=== PATIENT | male | born 1950 | race Caucasian/White ===

== ENCOUNTER → 2017-07-27 | Outpatient (CLI) | payer OTHER ==
[~2017-07-27] MED LIST: ASPI325T45; ATOR-24 PO; MULT-506 PO; OMEG10007 PO
[2017-07-27 12:15] LABS: BASO % 0.3 %; BASO ABS # 0.02 K/uL (0-0.2); COMPLETE YES; EOS % 1.5 %; HEMATOCRIT 46.2 % (42-52); IG% 0.2 %; LYMPH % 38.8 %; LYMPH ABS # 2.28 K/uL (1.2-3.4); MEAN CELL VOLUME 90.8 fL (80-100); MEAN CORPUSCULAR HEMOGLOBIN 31.2 pg (25-34); MEAN CORPUSCULAR HGB CONC 34.4 g/dl (32-36); MEAN PLATELET VOLUME 10.5 fL (7.4-10.4); MONO % 8.5 %; NEUT % 50.7 %; PLATELET COUNT 175 K/uL (130-400); RED BLOOD COUNT 5.09 M/uL (4.7-6.1); WHITE BLOOD COUNT 5.88 K/uL (4.8-10.8)
[2017-07-27 12:45] LABS: ALT/SGPT 46 U/L (12-78); AST/SGOT 20 U/L (15-37); BLOOD UREA NITROGEN 20 mg/dl (7-18); CALCIUM 8.4 mg/dl (8.5-10.1); CARBON DIOXIDE 25 mmol/L (21-32); CHLORIDE 107 mmol/L (98-107); CHOLESTEROL 153 mg/dl (0-200); CREATININE 1.16 mg/dl (0.60-1.40); GLUCOSE 110 mg/dl (70-99); POTASSIUM 4.2 mmol/L (3.5-5.1); SODIUM 140 mmol/L (136-145)
[2017-07-27 12:50] LABS: ALKALINE PHOSPHATASE 81 U/L (45-117); CHOLESTEROL/HDL RATIO 2.8; HDL CHOLESTEROL 55 mg/dl; LDL CHOLESTEROL CALCULATED 69 mg/dl; TRIGLYCERIDES 143 mg/dl (0-150); VERY LOW DENSITY LIPOPROT CALC 29 mg/dl
== END | disposition home or self-care (01) ==
LOC: C.LABBFT 07:35
PROVIDERS: ATTEND Physician Assistant Medical
DX: Z12.5 Encounter for screening for malignant neoplasm of prostate (principal); E78.5 Hyperlipidemia, unspecified; R53.83 Other fatigue; I10 Essential (primary) hypertension

== ENCOUNTER → 2017-07-29 | Outpatient (CLI) | payer OTHER ==
[2017-07-29 12:26] LABS: ESTIMATED AVERAGE GLUCOSE 108 mg/dl; HA1C FLAG Normal (Normal)
[2017-07-29 12:51] LABS: LYME DISEASE AB IGG NEG (NEG); LYME DISEASE AB IGM NEG (NEG)
== END | disposition home or self-care (01) ==
LOC: C.LABBFT 09:24
PROVIDERS: ATTEND Physician Assistant Medical
DX: R73.01 Impaired fasting glucose (principal); T14.8XXA Other injury of unspecified body region, initial encounter; W57.XXXA Bitten or stung by nonvenomous insect and other nonvenomous arthropods, initial encounter

== ENCOUNTER 2017-09-27 08:28 | Inpatient (IN) | payer OTHER ==
[2017-08-24 11:44] VITALS: BMI 35.0
--- NOTE | 2017-08-24 12:14 | PAT Medication Instructions ---
Service Date Aug 24, 2017. Current Home Medication List Aspirin (Aspirin), QAM Atorvastatin (Lipitor), 40 MG PO QAM Fish Oil (Imperial-3), 2 TAB PO QAM Lisinopril (Zestril), 40 MG PO QAM Multivitamin (Multivitamin), 1 TAB PO QAM Naproxen (Naprosyn), 500 MG PO PRN Ranitidine Hcl (Zantac), 150 MG PO PRN Medication Instructions For Your Scheduled Surgery - Check with surgeon for instructions: Naproxen (Naprosyn), 500 MG PO PRN Aspirin (Aspirin), 325mg QAM - Hold the following medications 2 weeks prior to surgery: Fish Oil (Imperial-3), 2 TAB PO QAM - Hold the following medications the morning of surgery: Lisinopril (Zestril), 40 MG PO QAM Multivitamin (Multivitamin), 1 TAB PO QAM - Take the following medications the morning of surgery with a sip of water: Atorvastatin (Lipitor), 40 MG PO QAM Ranitidine Hcl (Zantac), 150 MG PO PRN (if needed) - Take the following medications as scheduled the night before surgery: Ranitidine Hcl (Zantac), 150 MG PO PRN (if needed) If you have any questions please call us at [phone] or [phone] or [phone]
[2017-08-24 13:03] LABS: BASO % 0.4 %; BASO ABS # 0.02 K/uL (0-0.2); EOS % 0.8 %; EOS ABS # 0.04 K/uL (0-0.5); HEMATOCRIT 44.8 % (42-52); HEMOGLOBIN 15.4 g/dL (14.0-18.0); IG# 0.01 K/uL (0.00-0.02); LYMPH % 37.7 %; LYMPH ABS # 1.98 K/uL (1.2-3.4); MEAN CELL VOLUME 90.9 fL (80-100); MEAN CORPUSCULAR HEMOGLOBIN 31.2 pg (25-34); MEAN CORPUSCULAR HGB CONC 34.4 g/dl (32-36); MEAN PLATELET VOLUME 9.7 fL (7.4-10.4); MONO ABS # 0.37 K/uL (0.11-0.59); NEUT % 53.9 %; NEUT ABS # 2.83 K/uL (1.4-6.5); PLATELET COUNT 173 K/uL (130-400); RED CELL DISTRIBUTION WIDTH CV 13.5 % (11.5-14.5); RED CELL DISTRIBUTION WIDTH SD 44.6 fL (36.4-46.3); WHITE BLOOD COUNT 5.25 K/uL (4.8-10.8)
--- NOTE | 2017-08-24 13:09 | DIAGNOSTIC IMAGING REPORT ---
CHEST 2 VIEWS ROUTINE CLINICAL HISTORY: Preoperative evaluation. COMPARISON STUDY: No previous studies for comparison. FINDINGS: Lung volumes are normal. Incidental note is made of an azygos fissure. There is no consolidation to suggest pneumonia. Cardiomediastinal silhouette is normal. Pulmonary vascularity is normal. IMPRESSION: No acute cardiopulmonary findings. Electronically signed by: Josue Hagan M.D. 08/24/2017 1:08 PM Dictated Date/Time: 08/24/2017 1:07 PM
[2017-08-24 13:12] LABS: ALBUMIN 3.7 gm/dl (3.4-5.0); CALCIUM 8.9 mg/dl (8.5-10.1); CREATININE 0.95 mg/dl (0.60-1.40); POTASSIUM 4.4 mmol/L (3.5-5.1); PTT PATIENT 24.6 SECONDS (21.0-31.0)
--- NOTE | 2017-09-21 14:41 | History and Physical ---
History & Physical Date of Service Sep 21, 2017. History & Physical PROCEDURE: Right knee replacement. HISTORY OF PRESENT ILLNESS: Parth is a pleasant 67-year-old male who presents today for preop evaluation prior to right knee replacement. He states that he has been experiencing pain in that knee for several years now, which has gradually worsened. It has gotten to the point that it is affecting his daily activities including walking, standing, going up and down steps. He takes oral anti-inflammatories daily including Aleve without relief and also wears a brace on the knee, but has not shown any significant improvement. He also has had a previous knee arthroscopy without relief. At this point in time, further care was discussed with the patient and he has failed conservative measures and would like to proceed with a right knee replacement. he had his left knee replaced a couple years ago and doing well. PAST MEDICAL HISTORY: 1. Hypertension. 2. High cholesterol. 3. Sleep apnea and use of the CPAP machine at home. 4. Acid reflux. 5. Obesity. ALLERGIES: No known drug allergies. CURRENT MEDICATIONS: 1. Lipitor daily. 2. Multivitamin daily. 3. Aspirin 81 mg daily. 4. Vitamin E. PAST SURGICAL HISTORY: 1. Knee arthroscopy 2002. 2. Nasal surgery in 1983. 3. left TKA FAMILY HISTORY: Noncontributory. 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 Denies any previous smoking or tobacco use. No alcohol consumption. REVIEW OF SYSTEMS: Otherwise negative. Please see HPI for pertinent positives. PHYSICAL EXAMINATION: GENERAL: Angy 67-year-old male appearing stated age, in no acute distress, alert and oriented x3. He is 6 foot tall, weighs 265 pounds. HEENT: Normocephalic, atraumatic. CARDIAC: Regular rate and rhythm. No murmurs or gallops were appreciated. Resting pulse 70 beats minute. LUNGS: Clear to auscultation without rales or wheeze bilaterally. ABDOMEN: Soft, nontender, obese. Bowel sounds present. EXTREMITIES: Right lower extremity is neurovascularly intact. Calf is soft and nontender. DP pulse +2. Good quad tone. Straight leg raise without lag. There is no erythema or warmth, mild effusion, positive crepitation with motion, range of motion is 0/5/115. He has diffuse tenderness to the knee, which is greatest over the medial compartment. IMAGING: Right knee shows diminished joint space in the medial compartment with [id number] changes including peripheral osteophytes and subchondral sclerosis noted. Also has degenerative changes of patellofemoral joint on lateral view with patellar spurring noted. IMPRESSION: 1. Right knee degenerative joint disease 2. Hypertension. 3. High cholesterol. 4. Gastroesophageal reflux disease. 5. Obesity. 6. Sleep apnea. PLAN: Further care discussed with Parth. At this point in time, after failing conservative measures and discussing further care, would like to proceed with a right knee replacement on 09/27/17. We will obtain medical clearance from Dr. Acosta. Place on aspirin 81 mg 1 tablet p.o. b.i.d. for 1 month postop. He would like to be discharged home with a home therapy.
[2017-09-27] VITALS (7 sets, daily range): BP systolic 120–147; BP diastolic 72–93; PULSE 79–104; TEMP 36.7–37.1; O2SAT 93–96; Ht 182.9 cm; Wt 116.7 kg
[~2017-09-27] VITALS: Ht 182.9 cm; Wt 116.7 kg
--- NOTE | 2017-09-27 07:15 | History & Physical Bridge Note ---
H&P Re-Evaluation Bridge Note: I have examined the patient, reviewed the History & Physical and in the interval since the performance of the History & Physical I have noted the following changes of clinical significance: No changes noted
[~2017-09-27 08:28] MED LIST changes: +ACETAMINOPHEN 500 MG TAB PO SCH; +BUPIVACAINE 0.25% 30 ML VIAL ONE; +BUPIVACAINE 0.5 % 5 MG/1 ML PF 10ML VIAL ONE; +CEFAZOLIN 3000MG IV PUSH 15 ML IV SCH; +CeleBREX 200 MG CAP PO SCH; +DEXAMETHASONE 4 MG TAB PO SCH; +FAMOTIDINE 20 MG TAB PO SCH; +FENTANYL CITRATE INJ 50 MCG/1 ML 2 ML VIAL ONE; +GABAPENTIN 300 MG CAP PO SCH; +LACTATED RINGER'S 1000ML 1,000 ML IV SCH; +LACTATED RINGER'S 1000ML 500 ML IV SCH; +LACTATED RINGER'S 1000ML IV SCH; +LISI40TA PO; +METOCLOPRAMIDE HCL 10 MG TAB PO SCH; +MIDAZOLAM HCL 1 MG/ML 2ML VIAL ONE; +NAPR1TAB48 PO; +RANI150T3 PO; +ROPIVACAINE 5MG/ML 30 ML 150 MG, BUPIVACAINE 0.5% MPF INJ 30 ML, EpINEphrine HCL INJ 0.... INFIL SCH
[2017-09-27] MEDS ORDERED: ONDANSETRON INJ 2 MG/ML 2 ML VIAL ONE ×2 (08:37→10:36)
[2017-09-27] MEDS ORDERED: PROPOFOL IV EMULSION 10 MG/ML 20 ML VIAL IV ONE (08:37)
[2017-09-27] MEDS ORDERED: LIDOCAINE HCL 2% 2 ML VIAL (20MG/ML) ONE (08:37)
[2017-09-27] MEDS ORDERED: ORTHO JOINT ANESTHETIC ONE (09:11)
[2017-09-27] MEDS ORDERED: BACITRACIN 50000 UNIT VIAL ONE (09:11)
[2017-09-27] MEDS ORDERED: POVIDONE-IODINE OP SOLN 30 ML BTL ONE (09:11)
[2017-09-27] MEDS: TRANEXAMIC ACID INJ 1,000 MG in SYRINGE 0 ML IV SCH ×2 (09:36→14:08)
[2017-09-27] MEDS ORDERED: HYDROmorphone INJ 0.5 MG/0.5 ML SYR IV PRN (10:30)
[2017-09-27] MEDS ORDERED: ONDANSETRON INJ 2 MG/ML 2 ML VIAL IV PRN ×2 (10:30→12:00)
[2017-09-27] MEDS ORDERED: ATROPINE SULFATE 0.1 MG/ML 5ML SYR IV PRN (10:30)
[2017-09-27] MEDS ORDERED: PHENYLEPHRINE 100MCG/ML 5ML SYR IV PRN (10:30)
[2017-09-27] MEDS ORDERED: EpHEDrine SULFATE INJ 50 MG/ML AMP IV PRN (10:30)
[2017-09-27] MEDS ORDERED: KETOROLAC TROMETHAMINE 15 MG/ML VIAL IV. PRN ×2 (10:30→12:00)
[2017-09-27] MEDS ORDERED: EpHEDrine SULFATE 50MG/5ML SYR ONE (10:36)
[2017-09-27] MEDS ORDERED: PHENYLEPHRINE 100MCG/ML 5ML SYR ONE (10:36)
--- NOTE | 2017-09-27 11:13 | [facility] Operative Report ---
Operative Report Operative Date Sep 27, 2017. Pre-Operative Diagnosis Right Knee Degenerative Joint Disease Post-Operative Diagnosis Right Knee Degenerative Joint Disease Procedure(s) Performed Right Total Knee Arthroplasty, Cemented utilizing Melendez & Nephew journey 2 patient matched total knee arthroplasty size 8 femur 7 tibia 13 Maria Ines [address] 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 Description of Procedure After proper prepping and draping of the Right lower extremity anterior midline incision was made over the region of the extensor extensor mechanism after meticulous hemostasis was obtained and maintained in subcutaneous tissues a medial parapatellar incision was made The patella was subluxed lateralward the medial lateral gutter were cleaned from any hypertrophic synovitis and scar tissue of the distal femoral block was placed and the distal femoral osteotomy cut was made subsequently the chamfers anterior and posterior osteotomy cuts were made utilizing the 4-in-1 block the tibia was subsequently subluxed anteriorward medial and ateral meniscal remnants were excised in their entirety remnants of the anterior and posterior cruciate ligaments were excised in their entirety excellent exposure of the proximal tibia was obtained the tibial osteotomy guide was placed on the proximal tibial osteotomy cut was made once again the knee was irrigated with copious amounts of sterile saline solution the patella was subsequently everted lateralward thickened scar tissue around the patella was removed the patella was subsequently cut utilizing a freehand technique and was drilled prepared for final preparation and placement of patella socially flexion-extension gaps were checked and the equal and symmetric trials were placed to the appropriate femoral and tibial trials with poly-spacer being placed for equal flexion and extension gaps and full range of motion including extension to 0 and flexion to 140 the trial components after having been taken to recovery range of motion was subsequently removed meticulous hemostasis was obtained and maintained subsequently a knee block injection of joint cocktail including ropivacaine 0.5% 150 mg. Bupivacaine 0.5 % epinephrine 1-200,030 mL's toradol 30 mg dexamethasone 4 mg ketamine 10 mg clonidine 100 micrograms normal saline solution 30 mg was infiltrated into the soft tissues of the posterior knee medial lateral gutters and periosteal synovium special attention was paid to protect neurovascular structures at all times subsequently trial components having been removed the knee was irrigated with sterile saline solution. debris was removed the proximal tibia was subsequently prepared and was made ready for the placement of the tibial component tibial component was also cemented and tamped into position the femoral component was subsequently placed and cemented in the position the patellar component was subsequently cemented in position because hemostasis once again obtained and maintained wound having been thoroughly irrigated with debridement and debridement lavage was performed as well as a medial parapatellar incision closed with #1 Vicryl in interrupted fashion subcutaneous was closed with #2 Vicryl skin was closed with skin clips. PA-C was necessary for prepping and drapping as well as wound closure of deep fascia Sub cutaneous tissue and skin and was necessary for the case. A sterile compressive dressing was placed patient was taken to recovery in stable condition of report dictated by Lucho I attest to the content of the Intraoperative Record and any orders documented therein. Any exceptions are noted below. I attest to the content of the Intraoperative Record and any orders documented therein. Any exceptions are noted below.
[2017-09-27] MEDS ORDERED: ZOLPIDEM TARTRATE 5 MG TAB PO PRN (12:00)
[2017-09-27] MEDS ORDERED: BISACODYL 10 MG SUPP PR PRN (12:00)
[2017-09-27] MEDS ORDERED: OXYCODONE HCL IR 5 MG TAB (IMMEDIATE RELEASE) PO PRN (12:00)
[2017-09-27] MEDS ORDERED: MAGNESIUM HYDROXIDE SUSP 30 ML UDC PO PRN (12:00)
[2017-09-27] MEDS ORDERED: MoRPHine SULFATE 2 MG/ML CARP IV PRN ×2 (12:00→13:45)
[2017-09-27] MEDS ORDERED: SOD PHOSPHATE/SOD BIPHOSPHATE ENEMA 132 ML BTL PR PRN (12:00)
[2017-09-27] MEDS ORDERED: TRAMADOL HCL 50 MG TAB PO PRN (12:00)
[2017-09-27] MEDS ORDERED: ALUMINUM/MAGNESIUM/SIMETH (MAALOX MAX) 30 ML UDC PO PRN (12:00)
--- NOTE | 2017-09-27 12:14 | Anesthesiology Progress Note ---
Anesthesia Post Op Note Date & Time Sep 27, 2017 at 12:14 Vital Signs Pain Intensity: 0 Vital Signs Past 12 Hours Date Time Temp Pulse Resp B/P (MAP) Pulse Ox O2 Delivery O2 Flow Rate FiO2 09/27/17 12:10 96 18 113/75 94 Nasal Cannula 2 09/27/17 12:00 98 18 123/77 94 Nasal Cannula 2 09/27/17 11:51 36.5 101 18 98/46 95 Nasal Cannula 2 09/27/17 09:00 36.8 79 18 147/93 94 Room Air Notes Mental Status: alert / awake / arousable, participated in evaluation Pt Amnestic to Procedure: Yes Nausea / Vomiting: adequately controlled Pain: adequately controlled Airway Patency, RR, SpO2: stable & adequate BP & HR: stable & adequate Hydration State: stable & adequate Anesthetic Complications: no major complications apparent
--- NOTE | 2017-09-27 12:29 | DIAGNOSTIC IMAGING REPORT ---
R KNEE 1 OR 2 VIEWS ROUTINE CLINICAL HISTORY: Right knee osteoarthritis. Arthroplasty. COMPARISON: None. FINDINGS: Alignment of the total right knee arthroplasty is anatomic. There is no fracture or unexpected radiopaque foreign body. Skin surgical drains are in place. IMPRESSION: Expected findings following total right knee arthroplasty. Electronically signed by: Josue Hagan M.D. 09/27/2017 12:28 PM Dictated Date/Time: 09/27/2017 12:27 PM
[2017-09-27] MEDS ORDERED: MoRPHine SULFATE 10 MG/ML CARP/VIAL IV PRN (13:45)
[2017-09-27] MEDS ORDERED: MoRPHine SULFATE 4 MG/ML 1 ML CARP\\VIAL IV PRN (13:45)
[2017-09-27] MEDS: ACETAMINOPHEN 500 MG TAB PO SCH ×2 (14:07→21:50)
[2017-09-27] MEDS: D5W AND 1/2NSS + 20MEQ KCL 1,000 ML IV SCH ×2 (14:08→23:23)
[2017-09-27] MEDS: FERROUS GLUCONATE 324 MG TAB PO SCH (19:53)
[2017-09-27] MEDS: CEFAZOLIN IV 2,000 MG in SYRINGE 0 ML IV SCH (19:53)
[2017-09-27] MEDS: SENNA 8.6 MG TAB PO SCH (21:49)
[2017-09-27] MEDS: ASPIRIN 81 MG ECTAB PO SCH (21:49)
[2017-09-27] MEDS: DOCUSATE SODIUM 100 MG CAP PO SCH (21:49)
[2017-09-28] MEDS: CEFAZOLIN IV 2,000 MG in SYRINGE 0 ML IV SCH (01:58)
[2017-09-28 04:06] VITALS: BP 134/82; PULSE 72; TEMP 36.6; O2SAT 94
[2017-09-28] MEDS: ACETAMINOPHEN 500 MG TAB PO SCH ×3 (05:17→21:32)
[2017-09-28 07:11] LABS: HEMATOCRIT 36.5 % (42-52); HEMOGLOBIN 12.7 g/dL (14.0-18.0); MEAN CORPUSCULAR HGB CONC 34.8 g/dl (32-36); MEAN PLATELET VOLUME 9.8 fL (7.4-10.4); PLATELET COUNT 168 K/uL (130-400); RED CELL DISTRIBUTION WIDTH CV 13.6 % (11.5-14.5); RED CELL DISTRIBUTION WIDTH SD 44.1 fL (36.4-46.3); WHITE BLOOD COUNT 11.63 K/uL (4.8-10.8)
--- NOTE | 2017-09-28 07:41 | Orthopedic Progress Note ---
Orthopedic Progress Note Date of Service Sep 28, 2017. Subjective Post OP Day: 1 Reports: feeling well, Denies: complaints Objective calves soft nontender, N/V intact, dressing C/D/I, A&O x3, toes mobile, hemovac drainage (250ml latest shift) Date Time Temp Pulse Resp B/P (MAP) Pulse Ox O2 Delivery O2 Flow Rate FiO2 09/28/17 04:06 36.6 72 18 134/82 (99) 94 Room Air 09/27/17 23:26 Room Air 09/27/17 23:18 36.7 86 16 122/72 (89) 96 Room Air 09/27/17 19:57 37.1 98 16 142/80 (100) 95 Room Air 09/27/17 16:45 Room Air 09/27/17 15:49 36.9 100 16 120/72 (88) 96 Room Air 09/27/17 14:50 104 16 138/82 (100) 96 Nasal Cannula 09/27/17 13:15 96 16 133/82 (99) 93 Nasal Cannula 09/27/17 12:50 Nasal Cannula 2.0 09/27/17 12:50 37.1 97 18 122/77 (92) 93 Nasal Cannula 2.0 09/27/17 12:50 93 Nasal Cannula 2.0 09/27/17 12:35 98 16 117/70 94 Nasal Cannula 2 09/27/17 12:20 37.4 98 18 123/76 94 Nasal Cannula 2 09/27/17 12:10 96 18 113/75 94 Nasal Cannula 2 09/27/17 12:00 98 18 123/77 94 Nasal Cannula 2 09/27/17 11:51 36.5 101 18 98/46 95 Nasal Cannula 2 09/27/17 09:00 36.8 79 18 147/93 94 Room Air Laboratory Results 24 Hours: Test 09/28/17 06:30 Hematocrit 36.5 % Hemoglobin 12.7 g/dL Prothromb Time International Ratio 1.0 Prothrombin Time 10.5 SECONDS Assessment & Plan Assessment: POD 1 s/p Right TKA Plan: PT/OT Plan for dc home with [facility] services. Possible dc today. Inhouse Planning Pain Management: Celebrex, Toradol, Ultram, Morphine, PO Tylenol, Oxy IR DVT Prophylaxis: TEDs, SCDs, ASA Discharge Planning Discharge Planning: home with home health
[2017-09-28 07:47] LABS: CALCIUM 7.9 mg/dl (8.5-10.1); CREATININE 1.02 mg/dl (0.60-1.40); POTASSIUM 4.2 mmol/L (3.5-5.1)
[2017-09-28 08:12] VITALS: BP 140/70; PULSE 74; TEMP 36.7; O2SAT 97
--- NOTE | 2017-09-28 08:21 | Anesthesiology Progress Note ---
Anesthesia Post Op Note Date & Time Sep 28, 2017 at 08:21 Vital Signs Pain Intensity: 0.0 Vital Signs Past 12 Hours Date Time Temp Pulse Resp B/P (MAP) Pulse Ox O2 Delivery O2 Flow Rate FiO2 09/28/17 08:12 36.7 74 12 140/70 (93) 97 Room Air 09/28/17 04:06 36.6 72 18 134/82 (99) 94 Room Air 09/27/17 23:26 Room Air 09/27/17 23:18 36.7 86 16 122/72 (89) 96 Room Air Notes Mental Status: alert / awake / arousable, participated in evaluation Pt Amnestic to Procedure: Yes Nausea / Vomiting: adequately controlled Pain: adequately controlled Airway Patency, RR, SpO2: stable & adequate BP & HR: stable & adequate Hydration State: stable & adequate Neuraxial Anesthesia: sensory block resolved Anesthetic Complications: no major complications apparent
[2017-09-28] MEDS: ASPIRIN 81 MG ECTAB PO SCH ×2 (08:53→21:32)
[2017-09-28] MEDS: DOCUSATE SODIUM 100 MG CAP PO SCH ×2 (08:53→21:32)
[2017-09-28] MEDS: FERROUS GLUCONATE 324 MG TAB PO SCH ×3 (08:53→17:54)
[2017-09-28] MEDS: PANTOprazole SOD 40 MG TAB PO SCH (08:54)
[2017-09-28] MEDS: ATORVASTATIN 40 MG TAB PO SCH (08:54)
[2017-09-28] MEDS: MULTIVITAMIN TAB PO SCH (08:54)
[2017-09-28] MEDS: D5W AND 1/2NSS + 20MEQ KCL 1,000 ML IV SCH (08:55)
[2017-09-28] MEDS: LISINOPRIL 40 MG TAB PO SCH (08:55)
[2017-09-28 09:48] VITALS: O2SAT 97
--- NOTE | 2017-09-28 10:07 | Discharge Instructions ---
Discharge Instructions Date of Service Sep 28, 2017. Admission Reason for Admission: Right Knee Osteoarthritis Discharge Discharge Diagnosis / Problem: right total knee replacement Discharge Goals Goal(s): Decrease discomfort, Improve function, Increase independence Activity Recommendations Activity Limitations: as noted below Weightbearing Status: Right weightbearing (as tolerated) . Instructions / Follow-Up Instructions / Follow-Up ACTIVITY RECOMMENDATIONS: SELF CARE INSTRUCTIONS AFTER TOTAL KNEE REPLACEMENT A. You may need to continue a physical therapy program after discharge from the hospital. There are several options available to you. Your doctor will assist you in selecting the best one for you. 1. An out-patient facility 2 to 3 times a week for therapy or home therapy. 2. Continue working on all exercises taught to you in the hospital. Your goals should be to increase bending of your knee to 90 degrees and beyond and to fully straighten your knee. B. You may progress at your own pace from walking with a walker or crutches to a cane; then to no assistive devices. C. Make walking a part of your daily routine. Be up as much as comfortable with rest periods throughout the day. Rest with leg elevation is very important. Use the ice wrap frequently for the first 3-4 weeks. D. There are no restrictions on activities. You may ride in a car, shop, participate in oil laboratory analyst and all social activities. E. Wear the long elastic stockings (DOROTHY hose) 20 hours a day for 2 weeks after surgery. They can be removed several times a day for laundering and for a bath. F. You may shower, no tub baths until cleared by your doctor. SPECIAL CARE INSTRUCTIONS: VERY IMPORTANT TO READ AND REVIEW A. There are a few signs you need to watch for after you are home. Call [facility] if you notice any of the followin. Increased severe knee pain. Some pain is expected especially when you exercise. 2. Increased swelling in your leg or knee; pain or swelling of the calf muscle in either lower leg. 3. Any fluid drainage from the incision. 4. Shortness of breath or chest pain. B. Please call [facility] at if you have any concerns or questions about your operation or recovery. The doctor or his nurse will return your call promptly. C. You must take antibiotics before dental work, bladder, bowel or other surgery. Your doctor will provide you with a permanent care to carry describing this precaution. IMPORTANT: * REMEMBER TO TAKE ASPIRIN, 81 MG, TWICE DAILY FOR 4 WEEKS UNLESS OTHERWISE DIRECTED. THIS IS YOUR BLOOD THINNER. * HIGH RISK PATIENTS MAY BE PRESCRIBED A STRONGER BLOOD THINNER. THIS WILL BE PROVIDED AT DISCHARGE. * CALL IF INCREASED PAIN, REDNESS, DRAINAGE OR FEVER GREATER THAT 101. * WEAR DOROTHY HOSE 20 HOURS PER DAY FOR 2 WEEKS. * DERMABOND Prineo- This is a mesh tape dressing that is covered with glue. It should remain in place until the incision is properly healed, usually 10-14 days. This dressing is designed to naturally slough off. You may trim the excess mesh tape as it peels off. Incision may be briefly wet in a shower. Dry immediately by blotting with a clean, dry towel. Do not bath or swim until instructed by your doctor. Do not scratch, rub, or pick at the dressing. Do not apply any topical ointments or lotions until dressing is completely removed and/or instructed by your doctor. There may be a small piece of suture material at one end of your incision. Do not pull or trim this. If it is bothersome or catching on clothing, you may cover it with a band-aid. FOLLOW UP VISIT: If appointment is not already scheduled: Please call [facility] to make a follow-up appointment for 2 weeks after your surgery at . Current Hospital Diet Patient's current hospital diet: Regular Diet Discharge Diet Recommended Diet: Regular Diet Procedures Procedures Performed: Right Total Knee Arthroplasty, Cemented utilizing Melendez & Nephew journey 2 patient matched total knee arthroplasty size 8 femur 7 tibia 13 Maria Ines 38 oval patella Pending Studies Studies pending at discharge: no Laboratory Results Hemoglobin A1c Test 07/29/17 09:31 Range/Units Estimated Average Glucose 108 mg/dl Hemoglobin A1c 5.4 4.5-5.6 % Lipid Panel Test 07/27/17 07:47 Range/Units Triglycerides Level 143 0-150 mg/dl Cholesterol Level 153 0-200 mg/dl HDL Cholesterol 55 mg/dl Cholesterol/HDL Ratio 2.8 LDL Cholesterol, Calculated 69 mg/dl Medical Emergencies . Who to Call and When: Medical Emergencies: If at any time you feel your situation is an emergency, please call 911 immediately. . Non-Emergent Contact Non-Emergency issues call your: Primary Care Provider, Surgeon . "Provider Documentation" section prepared by Maksim Fairchild. . VTE Core Measure Inpt VTE Proph given/why not?: Other Anticoagulation (ASA 81mg po bid x 1 month ), T.E.D. Stockings, SCD's [place] Drug Monitoring Program Search Results: patient reviewed within database, no issues identified
[2017-09-28 10:49] VITALS: BP 126/76; PULSE 88; O2SAT 95
[2017-09-28 12:00] VITALS: BP 140/70; PULSE 80; TEMP 36.7; O2SAT 97
[2017-09-28 15:17] VITALS: BP 109/70; PULSE 81; TEMP 36.8; O2SAT 96
[2017-09-28] MEDS: CeleBREX 200 MG CAP PO SCH (21:32)
[2017-09-28] MEDS: SENNA 8.6 MG TAB PO SCH (21:32)
[2017-09-29 00:09] VITALS: BP 118/73; PULSE 69; TEMP 36.9; O2SAT 96
[2017-09-29] MEDS: ACETAMINOPHEN 500 MG TAB PO SCH (05:37)
[2017-09-29 07:01] VITALS: BP 117/74; PULSE 59; TEMP 36.7; O2SAT 97
--- NOTE | 2017-09-29 07:08 | Orthopedic Progress Note ---
Orthopedic Progress Note Date of Service Sep 29, 2017. Subjective Post OP Day: 2 Reports: feeling well, pain controlled w PO medications, Denies: complaints, chest pain, SOB, nausea / vomiting, light headedness, calf pain Objective calves soft nontender, N/V intact, capillary refill less than 2 sec., incision C /D/I, A&O x3, toes mobile Date Time Temp Pulse Resp B/P (MAP) Pulse Ox O2 Delivery O2 Flow Rate FiO2 09/29/17 07:01 36.7 59 19 117/74 (88) 97 Room Air 09/29/17 00:09 36.9 69 16 118/73 (88) 96 Room Air 09/28/17 23:09 Room Air CPAP 09/28/17 15:55 Room Air 09/28/17 15:17 36.8 81 19 109/70 (83) 96 Room Air 09/28/17 12:00 36.7 80 14 140/70 (93) 97 Room Air 09/28/17 10:49 88 95 09/28/17 09:48 97 Room Air 09/28/17 08:12 36.7 74 12 140/70 (93) 97 Room Air 09/28/17 07:45 Room Air Assessment & Plan Assessment: POD 2 s/p Right TKA Plan: PT/OT Plan for dc home with [facility] services. DC after PT today Discharge Planning Discharge Planning: home with home health
[2017-09-29] MEDS ORDERED: CLB200 PO (07:10)
[2017-09-29] MEDS ORDERED: ULT50X PO (07:10)
[2017-09-29] MEDS ORDERED: ONDA8TAB6 PO (07:10)
[2017-09-29] MEDS ORDERED: ACET-24 PO (07:10)
[2017-09-29] MEDS ORDERED: ASPEC81 PO (07:10)
[2017-09-29] MEDS ORDERED: RXC5 PO (07:10)
[2017-09-29] MEDS ORDERED: CLC100 PO (07:10)
--- NOTE | 2017-09-29 07:17 | Discharge Summary ---
Orthopedic Discharge Summary Admission Date/Reason Sep 27, 2017 at 08:42 Right Knee Osteoarthritis. Discharge Date/Disposition Sep 29, 2017 Home with services Diagnosis Principal Diagnosis: Right knee osteoarthritis Procedure(s) Performed Right Total Knee Arthroplasty, Cemented utilizing [employer] 2 patient matched total knee arthroplasty size 8 femur 7 tibia 13 Maria Ines 38 oval patella Consultations NONE Medication Reconciliation New Medications: Ondansetron Hcl (Zofran) 8 Mg Tab 8 MG PO Q8 PRN for Nausea, #20 TAB Acetaminophen (Sb Non-Aspirin Extra Stre) 500 Mg Tab 1000 MG PO Q8, #63 TAB Aspirin (Aspirin EC Low Dose) 81 Mg Ectab 81 MG PO BID for 30 Days, #60 TAB Celecoxib (Celebrex) 200 Mg Cap 200 MG PO BID for 30 Days, #60 CAP Docusate Sodium (Docusate Sodium) 100 Mg Cap 100 MG PO BID for 10 Days, #20 CAP Oxycodone HCl (Oxycodone HCl) 5 Mg Tab 5-10 MG PO Q4H PRN for Pain, #60 TAB Tramadol HCl (Tramadol HCl) 50 Mg Tab 50-100 MG PO Q4H PRN for Pain, #60 TAB Continued Medications: Atorvastatin (Lipitor) 40 Mg Tab 40 MG PO QAM, TAB Fish Oil (Bartow-3) 1 Ea Cap 2 TAB PO QAM, CAP Lisinopril (Zestril) 40 Mg Tab 40 MG PO QAM, TAB Multivitamin (Multivitamin) Tab 1 TAB PO QAM, TAB Ranitidine Hcl (Zantac) 150 Mg Tab 150 MG PO PRN, TAB Discontinued Medications: Aspirin (Aspirin) 325 Mg Tab QAM Naproxen (Naprosyn) 250 Mg Tab 500 MG PO PRN, TAB Admission Physical Exam As per Admitting History & Physical. Hospital Course Patient was a same day admission after undergoing a successful right TKA. He tolerated the procedure well. Post-operatively, his activity was progressed and well tolerated. Please refer to daily progress notes and PT notes for complete details. After exam on 09/29/17, patient felt to be stable for discharge home with HHPT. Patient will f/u in the office in 2 weeks for further evaluation including x-rays and incision check, sooner if having any issues or concerns. Below are pertinent labs/studies during their hospital stay: Last Vital Signs Documentation Date Time Temp Pulse Resp B/P (MAP) Pulse Ox O2 Delivery O2 Flow Rate FiO2 09/29/17 07:01 36.7 59 19 117/74 (88) 97 Room Air 09/27/17 12:50 2.0 Last Resulted CBC 09/28/17 06:30 Last Resulted BMP 09/28/17 06:30 Discharge Instructions ACTIVITY RECOMMENDATIONS: SELF CARE INSTRUCTIONS AFTER TOTAL KNEE REPLACEMENT A. You may need to continue a physical therapy program after discharge from the hospital. There are several options available to you. Your doctor will assist you in selecting the best one for you. 1. An out-patient facility 2 to 3 times a week for therapy or home therapy. 2. Continue working on all exercises taught to you in the hospital. Your goals should be to increase bending of your knee to 90 degrees and beyond and to fully straighten your knee. B. You may progress at your own pace from walking with a walker or crutches to a cane; then to no assistive devices. C. Make walking a part of your daily routine. Be up as much as comfortable with rest periods throughout the day. Rest with leg elevation is very important. Use the ice wrap frequently for the first 3-4 weeks. D. There are no restrictions on activities. You may ride in a car, shop, participate in lavender farm worker and all social activities. E. Wear the long elastic stockings (DOROTHY hose) 20 hours a day for 2 weeks after surgery. They can be removed several times a day for laundering and for a bath. F. You may shower, no tub baths until cleared by your doctor. SPECIAL CARE INSTRUCTIONS: VERY IMPORTANT TO READ AND REVIEW A. There are a few signs you need to watch for after you are home. Call [facility] if you notice any of the followin. Increased severe knee pain. Some pain is expected especially when you exercise. 2. Increased swelling in your leg or knee; pain or swelling of the calf muscle in either lower leg. 3. Any fluid drainage from the incision. 4. Shortness of breath or chest pain. B. Please call [facility] at if you have any concerns or questions about your operation or recovery. The doctor or his nurse will return your call promptly. C. You must take antibiotics before dental work, bladder, bowel or other surgery. Your doctor will provide you with a permanent care to carry describing this precaution. IMPORTANT: * REMEMBER TO TAKE ASPIRIN, 81 MG, TWICE DAILY FOR 4 WEEKS UNLESS OTHERWISE DIRECTED. THIS IS YOUR BLOOD THINNER. * HIGH RISK PATIENTS MAY BE PRESCRIBED A STRONGER BLOOD THINNER. THIS WILL BE PROVIDED AT DISCHARGE. * CALL IF INCREASED PAIN, REDNESS, DRAINAGE OR FEVER GREATER THAT 101. * WEAR DOROTHY HOSE 20 HOURS PER DAY FOR 2 WEEKS. * DERMABOND Prineo- This is a mesh tape dressing that is covered with glue. It should remain in place until the incision is properly healed, usually 10-14 days. This dressing is designed to naturally slough off. You may trim the excess mesh tape as it peels off. Incision may be briefly wet in a shower. Dry immediately by blotting with a clean, dry towel. Do not bath or swim until instructed by your doctor. Do not scratch, rub, or pick at the dressing. Do not apply any topical ointments or lotions until dressing is completely removed and/or instructed by your doctor. There may be a small piece of suture material at one end of your incision. Do not pull or trim this. If it is bothersome or catching on clothing, you may cover it with a band-aid. FOLLOW UP VISIT: If appointment is not already scheduled: Please call [facility] to make a follow-up appointment for 2 weeks after your surgery at .
[2017-09-29] MEDS: FERROUS GLUCONATE 324 MG TAB PO SCH (08:43)
[2017-09-29] MEDS: DOCUSATE SODIUM 100 MG CAP PO SCH (08:44)
[2017-09-29] MEDS: CeleBREX 200 MG CAP PO SCH (08:44)
[2017-09-29] MEDS: PANTOprazole SOD 40 MG TAB PO SCH (08:45)
[2017-09-29] MEDS: MULTIVITAMIN TAB PO SCH (08:45)
[2017-09-29] MEDS: ASPIRIN 81 MG ECTAB PO SCH (08:45)
[2017-09-29] MEDS: ATORVASTATIN 40 MG TAB PO SCH (08:45)
[2017-09-29 08:47] VITALS: BP 106/66; PULSE 69
[2017-09-29] MEDS: LISINOPRIL 40 MG TAB PO SCH (08:47)
[2017-09-29 09:54] VITALS: BP 106/66; PULSE 69; TEMP 36.7; O2SAT 97
== END 2017-09-29 11:43 | disposition home health service (06) | DRG 470 ==
LOC: C.ACU 08:28 → C.3E 08:42 → ENRESERV 12:31
PROVIDERS: ADMIT Orthopaedic Surgery; ATTEND Orthopaedic Surgery
PROC: 0SRC0J9 Replacement of Right Knee Joint with Synthetic Substitute, Cemented, Open Approach (ICD-10-PCS; principal; 2017-09-27 10:30)
DX: M17.11 Unilateral primary osteoarthritis, right knee (principal); I10 Essential (primary) hypertension; E78.00 Pure hypercholesterolemia, unspecified; K21.9 Gastro-esophageal reflux disease without esophagitis; G47.33 Obstructive sleep apnea (adult) (pediatric); E66.9 Obesity, unspecified; Z68.35 Body mass index [BMI] 35.0-35.9, adult; Z96.652 Presence of left artificial knee joint; Z79.82 Long term (current) use of aspirin; Z79.899 Other long term (current) drug therapy

== ENCOUNTER 2021-03-02 17:29 | Inpatient (IN) ==
[2021-03-02] MEDS ORDERED: SODIUM CHLORIDE 0.9% 1000ML 1,000 ML IV SCH (19:45)
[2021-03-02 20:19] LABS: Basophils # (auto) 0.01 K/uL (0-0.2); Basophils % (auto) 0.1 %; Eosinophils # (auto) 0.02 K/uL (0-0.5); Eosinophils % (auto) 0.3 %; Hematocrit (blood only) 44.3 % (42-52); Hemoglobin 15.1 g/dL (14.0-18.0); Immature Granulocytes # (auto) 0.01 K/uL (0.00-0.02); Immature Granulocytes % (auto) 0.1 %; Lymphocytes # (auto) 1.74 K/uL (1.2-3.4); Lymphocytes % (auto) 25.9 %; Mean Corpuscular Hemoglobin 30.9 pg (25-34); Mean Corpuscular Hgb Conc 34.1 g/dL (32-36); Mean Corpuscular Volume 90.6 fL (80-100); Mean Platelet Volume 9.2 fL (7.4-10.4); Monocytes # (auto) 0.64 K/uL (0.11-0.59); Monocytes % (auto) 9.5 %; Neutrophils # (auto) 4.29 K/uL (1.4-6.5); Neutrophils % (auto) 64.1 %; Platelet Count 162 K/uL (130-400); RDW Coefficient of Variation 13.4 % (11.5-14.5); RDW Standard Deviation 44.6 fL (36.4-46.3); Red Blood Count 4.89 M/uL (4.7-6.1); White Blood Count 6.71 K/uL (4.8-10.8)
[2021-03-02 20:35] LABS: Albumin Level 3.5 gm/dl (3.4-5.0); BUN Creatinine Ratio 11.7 (10-20); Creatinine Clr Calc Pharmacy 46.6 ml/min; Est GFR (African American) 38.6 ml/min; Est GFR (Non-African American) 33.3 ml/min; Potassium 4.3 mmol/L (3.5-5.1)
[2021-03-02 20:38] LABS: Albumin Globulin Ratio 0.8 (0.9-2); Bilirubin,Total 0.8 mg/dl (0.2-1); Globulin 4.4 gm/dl (2.5-4.0); Total Protein 7.9 gm/dl (6.4-8.2)
--- NOTE | 2021-03-02 21:52 | Emergency Department Note ---
History of Present Illness General Chief complaint: Flank Pain Stated complaint: L SIDE FLANK PAIN, KIDNEY STONE ON ABD XRAY Time Seen by Provider: 03/02/21 19:31 Source: patient Mode of arrival: ambulatory Limitations: no limitations History of Present Illness Provider complaint: Left flank and abdominal pain Onset (ago): week(s) 1 Location: back and abdomen Severity: moderate Pain Consistency: + colicky Maximum Pain Intensity: 7 Quality: + constant Exacerbated By: + eating and + movement Associated symptoms: + loss of appetite Treatments prior to arrival: none This is a 70-year-old male presents emergency department complaining of left low back and left flank pain. Patient states when symptoms began a week ago he thought perhaps it was recurrent kidney stone. He states he had a kidney stone 20 years ago and it began similarly. Patient states initially the first 2 days pain was on the left low back, left flank, and radiated in the left lower quadrant. He states after that the pain began to improve and he thought he was improving or may have passed a stone, however the he then began to develop a persistent left low back pressure. No further abdominal pain. He states he became constipated and had a poor appetite. He states all the pain is slightly worse with movement it is significantly worsened with attempts at eating. He states he was mildly constipated this week although did have a normal bowel movement on Tuesday, denies any black or bloody stools. He states attempts at eating also do make him nauseous. He denies fevers or chills. No other change in medications. No difficulty urinating. No recent trauma or change in activity. He was referred for an outpatient x-ray by his PCP. This was reviewed in the EMR. Pt seen during a time of high acuity and national emergency pandemic while wearing PPE. Home Medications Medication Instructions Recorded Confirmed Type atorvastatin 40 mg PO QAM 03/02/21 03/02/21 History lisinopril 40 mg PO QAM 03/02/21 03/02/21 History multivitamin [Daily Multi-Vitamin] 1 tab PO QAM 03/02/21 03/02/21 History Allergies Allergy/AdvReac Type Severity Reaction Status Date / Time shellfish derived Allergy Intermediate GOUT Verified 03/02/21 18:59 shrimp Allergy Intermediate HIVES Verified 03/02/21 18:59 Past Med/Surg History Medical History Nephrolithiasis Surgical History History of total knee arthroplasty Right total knee September 2017-Dr. Yepez Left total knee arthroplasty September 2015-Dr. Yepez S/P nasal septoplasty S/P TKR (total knee replacement) S/P tonsillectomy Family History Sister Breast cancer Heart disease Lupus (systemic lupus erythematosus) Hypothyroidism Lumbar canal stenosis Father Myocardial infarction Diabetes Coronary artery stenosis Mother COPD (chronic obstructive pulmonary disease) Hypothyroidism Lumbar canal stenosis Denies family history of Ovarian cancer Prostate cancer Colorectal cancer Social History Smoking Status: Never smoker Second Hand Exposure: No; Hx Alcohol Use: Yes Alcohol type: beer Alcohol Intake Frequency Comment: 1-2 beers per day Hx Substance Use: No Preferred Language: Nauruan Communication Ability: Effective Visual Impairment: No Limitations Hearing Ability: Normal Electrical Equipment Technician Required: No Beliefs That Will Affect Care: None marital status: Current Living Situation: Spouse current occupational status: employed and retired current occupation: Retired banker, currently [employer] Feels Safe at Home: Yes Childhood Exposure to Second-Hand Smoke: Yes during the past year weight has: remained stable Dental Care, Regularly: Yes Physical Activity Frequency: Does not Exercise Seatbelt Use: always Sunscreen Use: No Assistive Devices: Glasses Review of Systems See HPI for pertinent positives & negatives. and A total of 10 systems reviewed and were otherwise negative Physical Exam Vital Signs Vital Signs - 24 hr 03/02/21 17:34 03/02/21 20:18 03/02/21 21:49 Temperature 36.2 C L Temperature Source Temporal Artery Scan Pulse Rate 99 H Pulse Rate [Finger] 83 96 H Pulse Rhythm Regular Pulse Strength Normal Respiratory Rate 20 18 18 Respiratory Effort / Characteristics Non-Labored Spontaneous Non-Labored Spontaneous Respiratory Depth Normal Normal Respiratory Pattern Regular Blood Pressure 168/101 H Blood Pressure [Right Arm] 199/117 H 186/106 H Blood Pressure Mean 123 Blood Pressure Mean [Right Arm] 144 132 Blood Pressure Position Sitting Pulse Oximetry 97 96 96 Oxygen Delivery Method Room Air Room Air Room Air Sepsis Recent Fever Within 48 Hours No Sepsis New/Unexplained Change in Mental Status No Sepsis Action Taken by Nursing No Action Required GENERAL: alert, well appearing, well nourished, no distress, non-toxic EYE EXAM: normal conjunctiva, PERRL and EOM's grossly intact OROPHARYNX: no exudate, no erythema, lips, buccal mucosa, and tongue normal and mucous membranes are moist NECK: supple, no nuchal rigidity, no adenopathy, non-tender LUNGS: Clear to auscultation. Normal chest wall mechanics, no w/r/r HEART: no murmurs, S1 normal and S2 normal ABDOMEN: abdomen soft, non-tender, normo-active bowel sounds, no masses, no rebound or guarding. BACK: Back is symmetrical on inspection and there is no deformity, no midline tenderness, no CVA tenderness. SKIN: no rashes and no bruising UPPER EXTREMITIES: upper extremities are grossly normal. FROM, nml pulses b/l. LOWER EXTREMITIES: No pitting edema. FROM, nml pulses b/l. NEURO EXAM: Normal sensorium, cranial nerves II-XII grossly intact, normal speech, no gross weakness of arms, no gross weakness of legs. Gross sensation intact. Course Course 2214: Discussed with Ramses Rockwell PA-C, covering for urology, Dr. Martinez. Requests hospitalist primary for inpatient evaluation and they will see in consult. Administered Medications Hydrocodone Bitart/Acetaminophen (Hydrocodone/Acetamophen 5/325mg Tab) 1 tab PO Q6H PRN PRN Reason: Moderate Pain (4,5,6) Stop: 03/17/21 01:22 Last Admin: 03/03/21 22:41 Dose: 1 tab Documented by: [id number] Hydralazine HCl (Hydralazine Hcl 20 Mg/Ml Vial) 5 mg IV Q4H PRN PRN Reason: sBP > 180 Stop: 04/02/21 19:23 Last Admin: 03/03/21 22:42 Dose: 5 mg Documented by: [id number] Sodium Chloride (Nss 1000ml) 1,000 mls @ 125 mls/hr IV .Q8H JANUARY Stop: 04/01/21 22:29 Last Admin: 03/03/21 18:35 Dose: 125 mls/hr Documented by: [id number] Infusion: 03/03/21 18:35 Dose: 125 mls/hr Documented by: [id number] Admin: 03/03/21 13:30 Dose: 125 mls/hr Documented by: [id number] Infusion: 03/03/21 13:30 Dose: 125 mls/hr Documented by: [id number] Admin: 03/03/21 05:43 Dose: 125 mls/hr Documented by: [id number] Infusion: 03/03/21 05:43 Dose: 125 mls/hr Documented by: [id number] Admin: 03/02/21 22:44 Dose: 125 mls/hr Documented by: [id number] Ceftriaxone Sodium 2,000 mg/ (Dextrose) 70 mls @ 100 mls/hr IV Q24H JANUARY; Protocol Stop: 03/13/21 01:59 Last Admin: 03/04/21 01:31 Dose: 100 mls/hr Documented by: [id number] Infusion: 03/03/21 03:08 Dose: 0 mls/hr Documented by: [id number] Admin: 03/03/21 02:26 Dose: 100 mls/hr Documented by: [id number] Famotidine 20 mg/ Syringe 5 mls @ 2.5 mls/min IV Q12H JANUARY Stop: 04/02/21 01:59 Last Admin: 03/04/21 01:32 Dose: 2.5 mls/min Documented by: [id number] Admin: 03/03/21 13:30 Dose: 2.5 mls/min Documented by: [id number] Admin: 03/03/21 02:26 Dose: 2.5 mls/min Documented by: [id number] Tamsulosin HCl (Tamsulosin Hcl 0.4 Mg Cap) 0.4 mg PO QAM JANUARY Stop: 04/02/21 08:59 Last Admin: 03/03/21 09:10 Dose: 0.4 mg Documented by: [id number] Discontinued Medications Sodium Chloride (Nss 1000ml) 1,000 mls @ 500 mls/hr IV .Q2H JANUARY Stop: 03/02/21 21:44 Last Infusion: 03/02/21 22:12 Dose: 500 mls/hr Documented by: [id number] Admin: 03/02/21 20:04 Dose: 500 mls/hr Documented by: [id number] Acetaminophen (Ofirmev) 1,000 mg in 100 mls @ 400 mls/hr IV NOW STA Stop: 03/02/21 22:44 Last Infusion: 03/02/21 23:00 Dose: 400 mls/hr Documented by: [id number] Admin: 03/02/21 22:43 Dose: 400 mls/hr Documented by: [id number] Tamsulosin HCl (Tamsulosin Hcl 0.4 Mg Cap) 0.4 mg PO NOW ONE Stop: 03/02/21 22:51 Last Admin: 03/02/21 23:27 Dose: 0.4 mg Documented by: [id number] Medical Decision Making Differential Diagnosis Differential diagnoses includes but is not limited to lumbar radiculopathy, muscle strain, facture, cauda equina, mass, and disc herniation. Medical Records Attestation: I reviewed the patient's medical records. Home Medications Current Medication List: was personally reviewed by me Laboratory Data Attestation: I reviewed the patient's lab results. Result diagrams: 03/03/21 05:54 03/03/21 05:54 Lab Results 03/02/21 03/02/21 03/02/21 Range/Units 20:04 20:04 23:05 WBC 6.71 (4.8-10.8) K/uL RBC 4.89 (4.7-6.1) M/uL Hgb 15.1 (14.0-18.0) g/dL Hct 44.3 (42-52) % MCV 90.6 (80-100) fL MCH 30.9 (25-34) pg MCHC 34.1 (32-36) g/dL RDW Std Deviation 44.6 (36.4-46.3) fL RDW Coeff of Daisy 13.4 (11.5-14.5) % Plt Count 162 (130-400) K/uL MPV 9.2 (7.4-10.4) fL Immature Gran % (Auto) 0.1 % Neut % (Auto) 64.1 % Lymph % (Auto) 25.9 % [place] % (Auto) 9.5 % Eos % (Auto) 0.3 % Baso % (Auto) 0.1 % Neut # (Auto) 4.29 (1.4-6.5) K/uL Lymph # (Auto) 1.74 (1.2-3.4) K/uL [place] # (Auto) 0.64 H (0.11-0.59) K/uL Eos # (Auto) 0.02 (0-0.5) K/uL Baso # (Auto) 0.01 (0-0.2) K/uL Immature Gran # (Auto) 0.01 (0.00-0.02) K/uL Sodium 137 (136-145) mmol/L Potassium 4.3 (3.5-5.1) mmol/L Chloride 104 (98-107) mmol/L Carbon Dioxide 27 (21-32) mmol/L Anion Gap 6.0 (3-11) BUN 23 H (7-18) mg/dl Creatinine 2.00 H (0.6-1.4) mg/dl Est Cr Clr Drug Dosing 46.6 ml/min Est GFR ( Amer) 38.6 ml/min Est GFR (Non-Af Amer) 33.3 ml/min BUN/Creatinine Ratio 11.7 (10-20) Glucose 88 (70-99) mg/dl Calcium 9.0 (8.5-10.1) mg/dl Total Bilirubin 0.8 (0.2-1) mg/dl AST 44 H (15-37) U/L ALT 65 (12-78) U/L Alkaline Phosphatase 94 (45-117) U/L Total Protein 7.9 (6.4-8.2) gm/dl Albumin 3.5 (3.4-5.0) gm/dl Globulin 4.4 H (2.5-4.0) gm/dl Albumin/Globulin Ratio 0.8 L (0.9-2) COVID-19 Eval Order Covid19 at [facility] SARS-CoV-2 (PCR) (Negative) 03/02/21 Range/Units 23:05 WBC (4.8-10.8) K/uL RBC (4.7-6.1) M/uL Hgb (14.0-18.0) g/dL Hct (42-52) % MCV (80-100) fL MCH (25-34) pg MCHC (32-36) g/dL RDW Std Deviation (36.4-46.3) fL RDW Coeff of Daisy (11.5-14.5) % Plt Count (130-400) K/uL MPV (7.4-10.4) fL Immature Gran % (Auto) % Neut % (Auto) % Lymph % (Auto) % [place] % (Auto) % Eos % (Auto) % Baso % (Auto) % Neut # (Auto) (1.4-6.5) K/uL Lymph # (Auto) (1.2-3.4) K/uL [place] # (Auto) (0.11-0.59) K/uL Eos # (Auto) (0-0.5) K/uL Baso # (Auto) (0-0.2) K/uL Immature Gran # (Auto) (0.00-0.02) K/uL Sodium (136-145) mmol/L Potassium (3.5-5.1) mmol/L Chloride (98-107) mmol/L Carbon Dioxide (21-32) mmol/L Anion Gap (3-11) BUN (7-18) mg/dl Creatinine (0.6-1.4) mg/dl Est Cr Clr Drug Dosing ml/min Est GFR ( Amer) ml/min Est GFR (Non-Af Amer) ml/min BUN/Creatinine Ratio (10-20) Glucose (70-99) mg/dl Calcium (8.5-10.1) mg/dl Total Bilirubin (0.2-1) mg/dl AST (15-37) U/L ALT (12-78) U/L Alkaline Phosphatase (45-117) U/L Total Protein (6.4-8.2) gm/dl Albumin (3.4-5.0) gm/dl Globulin (2.5-4.0) gm/dl Albumin/Globulin Ratio (0.9-2) COVID-19 Eval Order SARS-CoV-2 (PCR) NEGATIVE (Negative) Imaging Data Radiologist's Impression: CT abdomen pelvis without contrast: Obstructing 6.4 mm left UPJ stone causing moderate hydronephrosis of the left kidney. Additional nonobstructing left kidney stones, the largest 13 mm. Nonobstructing 10 mm right kidney upper pole stone. No right-sided hydroureteronephrosis. Right kidney cyst, including a minimally complicated septated upper pole cyst. Umbilical hernia containing a short loop of small bowel without evidence of bowel obstruction at this time. Normal appendix. Diverticulosis without diverticulitis. Hepatic steatosis. Gallbladder, spleen, pancreas, adrenal glands are unremarkable. Urinary bladder and prostate are normal. Lumbar spondylosis. No acute osseous findings. Radiologist: Georgia Mchugh MD MDM Narrative This is a 70-year-old male who presents due to concern for back pain and possible kidney stone as he has had this previously. Patient found to have a large kidney stone as well as accompanying SELAM with a new creatinine of 2. Patient was afebrile and otherwise hemodynamically stable. Patient was given medication for pain as well as IV fluids. Due to concurrent findings, discussed with Ramses Rockwell PA-C was covering for urology who discussed case with Dr. Martinez. They requested hospitalist be the primary for inpatient treatment and they will see in consult. Case discussed with hospitalist for additional evaluation and management. UA was unremarkable. Additional IV fluids ordered. No evidence for bacteremia/sepsis. Patient made aware of results, patient was seen at bedside by urology PA. An order was placed for continuous cardiac monitoring. The monitor shows a rate of _90_ with _normal sinus rhythm. Impression & Plan Acute kidney injury, Flank pain, Ureterolithiasis, Hypertension Discharge Plan Visit Data Chief Complaint: Flank Pain Stated Complaint: L SIDE FLANK PAIN, KIDNEY STONE ON ABD XRAY ED Provider: Lauren Davison Discharge Problem: Acute kidney injury, Flank pain, Ureterolithiasis, Hypertension Patient Disposition: Admitted As Inpatient Discharge Instructions Interventions: ED Discharge Assessment Last Done: 03/03/21 01:08 Discharge Problem: Hypertension Qualifiers: Hypertension type: essential hypertension Qualified Code(s): I10 - Essential (primary) hypertension
[2021-03-02] MEDS ORDERED: ACETAMINOPHEN 1,000 MG/100 ML VIAL IV STA (22:30)
[2021-03-02] MEDS: SODIUM CHLORIDE 0.9% 1000ML 1,000 ML IV SCH (22:44)
--- NOTE | 2021-03-02 22:46 | Urology Consultation ---
Date of Consultation March 02, 2021 Assessment & Plan (1) Nephrolithiasis: Due to the patient's nephrolithiasis and the obstructing nature of this problem along with his acute kidney injury we recommend admission to the hospital proceeding as follows: Provide analgesics Provide antiemetics Hydration measures with IV fluids Strain all urine and save any kidney stones that are retrieved for proper analysis Follow serial labs Initiate Flomax for expulsive therapy Make the patient n.p.o. after midnight in the event that cystoscopy is required tomorrow morning Additional recommendations be based on the patient's clinical course as unfolds History of Present Illness Reason for Consultation: Nephrolithiasis History of Present Illness This 70-year-old male who has been complaining of some left-sided flank pain for approximately 1 week. He said the pain is primarily located in the left flank with some radiation to the front of his abdomen. He says that the pain comes and goes and is a sharp pain. He does not note any palliative or provocative factors. He has had associated nausea vomiting and admits that his oral intake has been limited over the past week but he has been trying to maintain adequate fluid intake. He denies any fevers or shakes but when he does get bouts of pain he does get chills. He does note that he has had a history of kidney stones in the past he notes it has been many years since he has had kidney stones and he was able to pass them without any surgical intervention. Because of his ongoing symptoms he presented to the emergency department. In the emergency department the patient did have labs and imaging which I independently reviewed. A CT scan of the abdomen and pelvis revealed he had a 6.4 mm kidney stone at the left ureteropelvic junction causing moderate hydronephrosis. Patient was also noted to have additional nonobstructing kidney stones on the left side with the largest measuring 13 mm. Is also noted to have a 10 mm nonobstructing kidney stone on the right side. Labs included a CBC where the white blood cell count, hemoglobin, hematocrit, and platelet count were within normal range. A chemistry profile showed his sodium and potassium were within normal range. The patient's BUN and creatinine were elevated at 23 and 2.0. Review of old records indicate that his creatinine usually runs about 0.9-1.0. At the time of my interview the patient was resting in bed. He was currently pain-free and was in no distress. Allergies Allergy/AdvReac Type Severity Reaction Status Date / Time shellfish derived Allergy Intermediate GOUT Verified 03/02/21 18:59 shrimp Allergy Intermediate HIVES Verified 03/02/21 18:59 Home Medications Medication Instructions Recorded Confirmed Type atorvastatin 40 mg PO QAM 03/02/21 03/02/21 History lisinopril 40 mg PO QAM 03/02/21 03/02/21 History multivitamin [Daily Multi-Vitamin] 1 tab PO QAM 03/02/21 03/02/21 History Patient History Medical History (Updated 03/02/21 @ 22:48 by Giovani Forde PA-C) Nephrolithiasis Surgical History History of total knee arthroplasty Right total knee September 2017-Dr. Yepez Left total knee arthroplasty September 2015-Dr. Yepez S/P nasal septoplasty S/P TKR (total knee replacement) S/P tonsillectomy Family History Sister Breast cancer Heart disease Lupus (systemic lupus erythematosus) Hypothyroidism Lumbar canal stenosis Father Myocardial infarction Diabetes Coronary artery stenosis Mother COPD (chronic obstructive pulmonary disease) Hypothyroidism Lumbar canal stenosis Denies family history of Ovarian cancer Prostate cancer Colorectal cancer Social History Smoking Status: Never smoker Second Hand Exposure: No; Hx Alcohol Use: Yes Alcohol type: beer Alcohol Intake Frequency Comment: 1-2 beers per day Hx Substance Use: No Preferred Language: Chinese Communication Ability: Effective Visual Impairment: No Limitations Hearing Ability: Normal Technical Solution Architect Required: No marital status: Current Living Situation: Spouse current occupational status: employed and retired current occupation: Retired banker, currently [employer] Feels Safe at Home: Yes Childhood Exposure to Second-Hand Smoke: Yes during the past year weight has: remained stable Dental Care, Regularly: Yes Physical Activity Frequency: Does not Exercise Seatbelt Use: always Sunscreen Use: No Review of Systems Constitutional: + chills; no fever Eyes: no diplopia Ear, Nose, Mouth, Throat: no ear pain Respiratory: no cough and no dyspnea Cardiovascular: no chest pain Gastrointestinal: + nausea and + vomiting; no abdominal pain Genitourinary: + flank pain (Left-sided); no dysuria and no hematuria Musculoskeletal: + back pain (Left flank pain) Integumentary: no rash Neurologic: no localized weakness Physical Exam Constitutional: well developed and well nourished; no acute distress Eyes: no conjunctival abnormality Wears glasses ENMT: Ears: no hearing impairment Neck: trachea midline Respiratory: normal respiratory effort; no respiratory distress and no labored breathing Cardiovascular: Rate/Rhythm: regular rate and regular rhythm Gastrointestinal (Abdomen): Percussion/Palpation: abdomen soft; abdomen nontender Musculoskeletal: No calf tenderness. 1+ lower extremity edema noted bilaterally. Skin: no rashes, warm and dry Neurologic: moves all extremities Psychiatric: A+Ox3, euthymic affect Genitourinary: no CVA tenderness Results & Data ([facility]) Vital Signs (Past 12 Hours) Vital Signs Temp Pulse Pulse Resp BP BP Pulse Ox 03/02/21 21:49 96 H 18 186/106 H 96 03/02/21 20:18 83 18 199/117 H 96 03/02/21 17:34 36.2 C L 99 H 20 168/101 H 97 PG Care Time/CCT Total # of Minutes Spent Total Time Spent with Patient: Total time spent is greater than 50% in coordination of care (as documented) at patient's floor/unit and/or counseling patient: Coding Level of Care Code 36274 Inpt Consult Level 5 Diagnoses Nephrolithiasis N20.0
[2021-03-02] MEDS ORDERED: TAMSULOSIN HCL 0.4 MG CAP PO ONE (22:50)
--- NOTE | 2021-03-02 23:35 | History & Physical Report ---
Date of Service March 02, 2021 Assessment & Plan (1) Obstruction of left ureteropelvic junction (UPJ) due to stone: 6.4 mm left UPJ ureteral stone/moderate left hydronephrosis- Follow urine culture sensitivity Empiric ceftriaxone 2 g IV daily NSS at 125 mL's per hour Zofran 4 mg IV every 6 hours as needed Famotidine 20 mg IV every 12 hours [place] 5/325, 1 p.o. every 6 hours as needed moderate pain [place] 5/325, 2 p.o. every 6 hours as needed severe pain Dilaudid 0.25 mg IV every 3 hours as needed moderate pain Dilaudid 0.5 mg IV every 3 hours as needed severe pain Consult urology Present on Admission?: Yes (2) Hydronephrosis of left kidney: See above Present on Admission?: Yes (3) Acute kidney injury: Creatinine 2.00 upon admission, with normal 1.00 NSS at 125 mils per hour Repeat laboratories in a.m. Present on Admission?: Yes (4) Hypertension: Hold lisinopril 40 mg daily due to SELAM Present on Admission?: Yes (5) Hyperlipidemia: Continue atorvastatin 40 mg daily Present on Admission?: Yes (6) Impaired fasting glucose: Glucose 88 upon admission. On no outpatient medications Present on Admission?: Yes History of Present Illness Chief Complaint: The patient presents to the emergency department with left- sided flank and abdominal pain Primary Care Provider: Hunter Acosta MD The patient is a 70-year-old male with a past medical history including moderate LEONARD, hyperlipidemia, hypertension, impaired fasting glucose, morbid obesity, paresthesias, plantar flexion deformity of left foot, absent dorsiflexion of left ankle, steppage gait, DJD of knee, and history of kidney stone greater than 20 years ago. He presents with acute onset of left-sided flank and abdominal pain. Work-up in the emergency department included CT of abdomen and pelvis which showed a 6.4 mm left UPJ stone causing moderate left hydronephrosis. Also noted was hepatic steatosis. Significantly abnormal laboratories: BUN 23, creatinine 2.00, AST 44, globulin 4.4. Patient was COVID-19 negative Allergies Allergy/AdvReac Type Severity Reaction Status Date / Time shellfish derived Allergy Intermediate GOUT Verified 03/02/21 18:59 shrimp Allergy Intermediate HIVES Verified 03/02/21 18:59 Home Medications Medication Instructions Recorded Confirmed Type atorvastatin 40 mg PO QAM 03/02/21 03/02/21 History lisinopril 40 mg PO QAM 03/02/21 03/02/21 History multivitamin [Daily Multi-Vitamin] 1 tab PO QAM 03/02/21 03/02/21 History Past Med/Surg History Medical History (Updated 03/03/21 @ 04:12 by Tomy Zhao MD) Nephrolithiasis Surgical History History of total knee arthroplasty Right total knee September 2017-Dr. Yepez Left total knee arthroplasty September 2015-Dr. Yepez S/P nasal septoplasty S/P TKR (total knee replacement) S/P tonsillectomy Family History Sister Breast cancer Heart disease Lupus (systemic lupus erythematosus) Hypothyroidism Lumbar canal stenosis Father Myocardial infarction Diabetes Coronary artery stenosis Mother COPD (chronic obstructive pulmonary disease) Hypothyroidism Lumbar canal stenosis Denies family history of Ovarian cancer Prostate cancer Colorectal cancer Social History Smoking Status: Never smoker Second Hand Exposure: No; Hx Alcohol Use: Yes Alcohol type: beer Alcohol Intake Frequency Comment: 1-2 beers per day Hx Substance Use: No Preferred Language: Persian Communication Ability: Effective Visual Impairment: No Limitations Hearing Ability: Normal House Coordinator Required: No Beliefs That Will Affect Care: None marital status: Current Living Situation: Spouse current occupational status: employed and retired current occupation: Retired [employer]er, currently [employer] Other Information That Helps Us Care for You: No Feels Safe at Home: Yes Safety Concerns: Feels Safe At This Time Childhood Exposure to Second-Hand Smoke: Yes during the past year weight has: remained stable Dental Care, Regularly: Yes Physical Activity Frequency: Does not Exercise Seatbelt Use: always Sunscreen Use: No Assistive Devices: None and Glasses Review of Systems Review of Systems: The patient denies chest pain, palpitations, shortness of breath, dyspnea on exertion, cough, lower extremity swelling, sore throat, fevers, chills, sweats, nausea, vomiting, diarrhea , constipation, blood in urine or stool, dysuria, urinary frequency or urgency, lightheadedness, dizziness, headache, memory loss, loss of consciousness, rash, abnormal bruising or bleeding, imbalance, focal or generalized weakness, numbness or tingling in arms or legs, generalized arthralgias or myalgias, neck pain, or night sweats. The review of systems is otherwise negative other than for that already noted above, and at least 10 systems have been reviewed. Physical Exam Physical Exam: The patient is awake, alert and oriented 3, well developed and well nourished, normocephalic and atraumatic, lying in bed and in no acute distress. HEENT--PERRL, EOMI, mucous membranes and oropharynx normal. Neck--supple. No JVD. No bruits. Thyroid normal, trachea midline, no adenopathy. Heart--normal S1 and S2. No murmurs, rubs or gallops. Lungs--clear bilaterally, no respiratory distress, no accessory muscle use. Abdomen--normal bowel sounds and soft. Nontender. Nondistended. Obese Extremities--no cyanosis or clubbing. No edema. Dermatologic--normal skin turgor, normal color, no abnormal lymph nodes, no rash. Neurologic--cranial nerves II through XII grossly intact. Rheumatologic--normal range of motion. Psychiatric--normal affect. Results & Data Results & Data ([facility]) Vital Signs (Past 12 Hours) Vital Signs Temp Pulse Pulse Resp BP BP Pulse Ox 03/02/21 23:08 86 18 174/97 H 999 H 03/02/21 21:49 96 H 18 186/106 H 96 03/02/21 20:18 83 18 199/117 H 96 03/02/21 17:34 97.2 F L 99 H 20 168/101 H 97 Laboratory Results Laboratory Results WBC 6.71 K/uL (4.8-10.8) 03/02/21 20:04 RBC 4.89 M/uL (4.7-6.1) 03/02/21 20:04 Hgb 15.1 g/dL (14.0-18.0) 03/02/21 20:04 Hct 44.3 % (42-52) 03/02/21 20:04 MCV 90.6 fL (80-100) 03/02/21 20:04 MCH 30.9 pg (25-34) 03/02/21 20:04 MCHC 34.1 g/dL (32-36) 03/02/21 20:04 RDW Std Deviation 44.6 fL (36.4-46.3) 03/02/21 20:04 RDW Coeff of Daisy 13.4 % (11.5-14.5) 03/02/21 20:04 Plt Count 162 K/uL (130-400) 03/02/21 20:04 MPV 9.2 fL (7.4-10.4) 03/02/21 20:04 Immature Gran % (Auto) 0.1 % 03/02/21 20:04 Neut % (Auto) 64.1 % 03/02/21 20:04 Lymph % (Auto) 25.9 % 03/02/21 20:04 Mcpherson % (Auto) 9.5 % 03/02/21 20:04 Eos % (Auto) 0.3 % 03/02/21 20:04 Baso % (Auto) 0.1 % 03/02/21 20:04 Neut # (Auto) 4.29 K/uL (1.4-6.5) 03/02/21 20:04 Lymph # (Auto) 1.74 K/uL (1.2-3.4) 03/02/21 20:04 Mcpherson # (Auto) 0.64 K/uL (0.11-0.59) H 03/02/21 20:04 Eos # (Auto) 0.02 K/uL (0-0.5) 03/02/21 20:04 Baso # (Auto) 0.01 K/uL (0-0.2) 03/02/21 20:04 Immature Gran # (Auto) 0.01 K/uL (0.00-0.02) 03/02/21 20:04 Sodium 137 mmol/L (136-145) 03/02/21 20:04 Potassium 4.3 mmol/L (3.5-5.1) 03/02/21 20:04 Chloride 104 mmol/L (98-107) 03/02/21 20:04 Carbon Dioxide 27 mmol/L (21-32) 03/02/21 20:04 Anion Gap 6.0 (3-11) 03/02/21 20:04 BUN 23 mg/dl (7-18) H 03/02/21 20:04 Creatinine 2.00 mg/dl (0.6-1.4) H 03/02/21 20:04 Est Cr Clr Drug Dosing 46.6 ml/min 03/02/21 20:04 Est GFR ( Amer) 38.6 ml/min 03/02/21 20:04 Est GFR (Non-Af Amer) 33.3 ml/min 03/02/21 20:04 BUN/Creatinine Ratio 11.7 (10-20) 03/02/21 20:04 Glucose 88 mg/dl (70-99) 03/02/21 20:04 Calcium 9.0 mg/dl (8.5-10.1) 03/02/21 20:04 Total Bilirubin 0.8 mg/dl (0.2-1) 03/02/21 20:04 AST 44 U/L (15-37) H 03/02/21 20:04 ALT 65 U/L (12-78) 03/02/21 20:04 Alkaline Phosphatase 94 U/L (45-117) 03/02/21 20:04 Total Protein 7.9 gm/dl (6.4-8.2) 03/02/21 20:04 Albumin 3.5 gm/dl (3.4-5.0) 03/02/21 20:04 Globulin 4.4 gm/dl (2.5-4.0) H 03/02/21 20:04 Albumin/Globulin Ratio 0.8 (0.9-2) L 03/02/21 20:04 COVID-19 Eval Order Covid19 at [facility] 03/02/21 23:05 SARS-CoV-2 (PCR) NEGATIVE (Negative) 03/02/21 23:05 Diagnostic Findings [facility] Patient: PRISCILLA FARIAS (Male) : 54 Status: ER Date: 03/02/21 21:28 Room #: History: llq pain and left flank pain Slices: [id number] Priors: Tech: Nasim Boswell @ [phone] Exams: CT ABDOMEN & PELVIS Without Contrast Contrast: Accession Numbers: [id number] Preliminary Findings Only See Final Report For Complete Findings CT ABDOMEN & PELVIS Without Contrast: Obstructing 6.4 mm left UPJ stone causing moderate hydronephrosis of the left kidney. Additional nonobstructing left kidney stones, the largest 13 mm. Nonobstructing 10 mm right kidney upper pole stone. No right-sided hydroureteronephrosis. Right kidney cysts, including a minimally complicated septated upper pole cyst. Umbilical hernia containing a short loop of small bowel without evidence of bowel obstruction at this time. Normal appendix. Diverticulosis without diverticulitis. Hepatic steatosis. Gallbladder, spleen, pancreas, adrenal glands are unremarkable. Urinary bladder and prostate are normal. Lumbar spondylosis. No acute osseous findings. Radiologist: Georgia Mchugh M.D. Study ready at 21:42 and initial results transmitted at 21:48 *This report constitutes a preliminary interpretation only. Non-acute findings felt to be unrelated to the clinical presentation may not be discussed in this report. The study will be interpreted and a final report will be generated by the local Radiologist the following shift. To reach the hospital radiology department call [phone]. If a discrepancy is found between the preliminary and final interpretations of this study, please notify us via our Client Portal at [email or web address], under QA Exams.You can also fax this report with a description of the discrepancy, or include the final report, to our daytime fax number [phone].If faxing, please indicate the severity of discrepancy using one of the following categories: [ ] 1 - Agree/Informational [ ] 2 - Unlikely to Affect Management [ ] 3 - Possible Eventual Change of Management [ ] 4 - Probable Immediate Change of Management For all other patient related information, please fax us at [phone]. [id number] Code Status & VTE Plan Code Status Full code VTE Prophylaxis Plan VTE Prophylaxis will be ordered: Yes PG Care Time/CCT Total # of Minutes Spent Total Time Spent with Patient: Total time spent is greater than 50% in coordination of care (as documented) at patient's floor/unit and/or counseling patient: Coding Level of Care Code 60767 Initial Inpt Care Lvl 2 Diagnoses Obstruction of left ureteropelvic junction (UPJ) due to stone N20.1 Hydronephrosis of left kidney N13.30 Acute kidney injury N17.9 Hypertension I10 Hyperlipidemia E78.5 Impaired fasting glucose R73.01
[2021-03-03] MEDS ORDERED: HYDROCODONE/ACETAMOPHEN 5/325MG TAB PO PRN ×2 (01:23)
[2021-03-03] MEDS ORDERED: HYDROmorphone INJ 0.5 MG/0.5 ML SYR IV PRN ×2 (01:23)
[2021-03-03] MEDS ORDERED: ONDANSETRON INJ 2 MG/ML 2 ML VIAL IV PRN ×2 (01:23→15:18)
[2021-03-03] MEDS ORDERED: ACETAMINOPHEN 325 MG TAB PO PRN (01:23)
[2021-03-03] MEDS: FAMOTIDINE 20 MG in SYRINGE 3 ML IV SCH ×2 (02:26→13:30)
[2021-03-03] MEDS: cefTRIAXone SODIUM 2,000 MG in DEXTROSE 5% 50 ML IV SCH (02:26)
[2021-03-03] MEDS: SODIUM CHLORIDE 0.9% 1000ML 1,000 ML IV SCH ×3 (05:43→18:35)
[2021-03-03 06:07] LABS: Basophils # (auto) 0.01 K/uL (0-0.2); Basophils % (auto) 0.2 %; Eosinophils # (auto) 0.04 K/uL (0-0.5); Eosinophils % (auto) 0.7 %; Hematocrit (blood only) 41.5 % (42-52); Immature Granulocytes # (auto) 0.01 K/uL (0.00-0.02); Immature Granulocytes % (auto) 0.2 %; Mean Corpuscular Hgb Conc 33.7 g/dL (32-36); Mean Corpuscular Volume 91.8 fL (80-100); Mean Platelet Volume 8.9 fL (7.4-10.4); Monocytes # (auto) 0.52 K/uL (0.11-0.59); Monocytes % (auto) 9.6 %; Neutrophils # (auto) 2.71 K/uL (1.4-6.5); Neutrophils % (auto) 50.3 %; Platelet Count 167 K/uL (130-400); RDW Coefficient of Variation 13.5 % (11.5-14.5); RDW Standard Deviation 45.7 fL (36.4-46.3); Red Blood Count 4.52 M/uL (4.7-6.1); White Blood Count 5.39 K/uL (4.8-10.8)
[2021-03-03 06:22] LABS: BUN Creatinine Ratio 16.6 (10-20); Calcium 8.1 mg/dl (8.5-10.1); Creatinine Clr Calc Pharmacy 84.1 ml/min; Est GFR (African American) 78.7 ml/min; Est GFR (Non-African American) 67.9 ml/min
[2021-03-03 06:25] LABS: Albumin Globulin Ratio 0.8 (0.9-2); Bilirubin,Total 0.6 mg/dl (0.2-1); Globulin 3.7 gm/dl (2.5-4.0); Total Protein 6.7 gm/dl (6.4-8.2)
--- NOTE | 2021-03-03 08:08 | CT Scan Report ---
CT SCAN OF THE ABDOMEN AND PELVIS WITHOUT CONTRAST CLINICAL HISTORY: left flank/LLQ pain COMPARISON STUDY: No previous studies for comparison. TECHNIQUE: CT scan of the abdomen and pelvis was performed from the lung bases to the proximal femurs . Images are reviewed in the axial, sagittal, and coronal planes. IV contrast was not administered fo r this examination. A dose lowering technique was utilized adhering to the principles of ALARA. CT DOSE: 1330.38 mGy.cm FINDINGS: Lower chest: The heart is normal in size and configuration, without pericardial effusion. The lung ba ses and pleural spaces are clear. Liver: There is diffuse decrease in attenuation of liver parenchyma without evidence of focal lesions or intrahepatic biliary dilatation. Gallbladder: Unremarkable. Spleen: Normal in size and attenuation. Pancreas: Unremarkable. Adrenal glands: Unremarkable. Kidneys: No evidence of hydronephrosis on the right. Nephrolithiasis is seen bilaterally. Largest calculus is seen within left renal pelvis and measuring 14 mm in size. No evidence of hydronephrosis on the right. Moderate hydronephrosis and hydroureter is seen on the le ft associated with perinephric stranding and 5 mm obstructive calculus within proximal aspect of the left ureter. Multiple cysts are seen on the right, largest is measuring 4.5 x 4.5 cm in size, and show calcified s eptation. Bowel: Bowel loops are nondilated. Appendix is not well seen. Diverticulosis of descending and sigmoi d colon is seen without evidence of diverticulitis. There is small umbilical hernia containing nondilated loop of small bowel show ostium of 0.8 cm. Peritoneum: There is no intraperitoneal free air or abdominal ascites. Vasculature: The abdominal aorta is normal in course and caliber. Adenopathy: None. Pelvic viscera: The bladder, and pelvic viscera are unremarkable. Skeletal structures: Degenerative changes of the spine. Grade 2 anterolisthesis of L4 on L5. Bilatera l spondylolysis is seen at L4 level. IMPRESSION: 1. 5 mm obstructive calculus within proximal aspect of the left ureter associated with moderate hydr onephrosis and hydroureter on the left and associated perinephric inflammatory changes. 2. Bilateral nephrolithiasis. 3. Multiple cystic lesions within right kidney, largest shows calcified septations no definite evide nce of soft tissue component however evaluation is limited due to lack of IV contrast. Further evalua tion by urology and possible dedicated CT of the abdomen on nonemergency basis is suggested. 4. Small umbilical hernia containing nondilated loop of small bowel. No evidence of obstruction or s trangulation. 5. Diverticulosis of descending and sigmoid colon without evidence of diverticulitis. 6. Hepatic steatosis. 7. Degenerative changes of the spine. ACT 112: Positive. There are findings on this exam that require communication between the performing entity and the patient following Patient Test Result Information Act ([place] Act 112) guidelines. The above report was generated using voice recognition software. It may contain grammatical, syntax o r spelling errors. Electronically signed by: Kandice Melvin DO 03/03/2021 8:07 AM
[2021-03-03] MEDS: TAMSULOSIN HCL 0.4 MG CAP PO SCH (09:10)
--- NOTE | 2021-03-03 09:31 | Urology Progress Note ---
Date of Service March 03, 2021 Assessment & Plan (1) Obstruction of left ureteropelvic junction (UPJ) due to stone: (2) Hydronephrosis of left kidney: 70yo M admitted with intractable left flank pain and SELAM secondary to a 6mm Left UPJ stone with hydronephrosis - Patient afebrile, no complaints of pain at present. - Labs reviewed, Wbc normal and creatinine 1.11 today (2.0 on admission). - Discussed options for acute stone management with cystoscopy and stent placement. - Discussed outpatient options for conservative measures with max expulsion medical therapy. - Discussed outpatient ESWL. - Risks/benefits of all procedures discussed. - Patient would like to proceed with left ureteral stent placement today with possible outpatient lithotripsy on Tuesday. - Plan of care reviewed with Dr. Hudson. - Given his intractable left flank pain in the context of an obstructing 6mm left UPJ stone with hydronephrosis, will proceed with OR today for cystoscopy and left ureteral stent placement. - Risks and benefits to be reviewed with patient by Dr. Hudson. OR notified. On IV Ceftriaxone. - Keep NPO - Continue to strain all urine - Expected clinical course reviewed with patient, all questions were answered. Admission and Anticipated Discharge Date Admission Date: March 02, 2021 Supervising Physician Co-Signing Physician Notes agree with above. plan for left ureteral stent placement now Subjective Pt examined at bedside this AM. Awake, resting in bed on arrival. He reports feeling much better since admission. Denies back, flank, and suprapubic pain at present. No fevers or chills. Denies nausea and vomiting. Has been NPO since midnight. Chart review: Afebrile Wbc 5.39 Hgb 14.0 Cr 1.11 Review of Systems Constitutional: as per Subjective / HPI Gastrointestinal: as per Subjective / HPI Genitourinary: + as per Subjective / HPI Physical Exam Constitutional: well developed and well nourished; no acute distress Respiratory: no labored breathing and no audible wheezes Cardiovascular: Extremities: no calf tenderness Gastrointestinal (Abdomen): Inspection/Auscultation: abdomen not distended Percussion/Palpation: abdomen soft; abdomen nontender and no guarding Musculoskeletal: Head/Neck/Chest: normocephalic Skin: no rashes, warm and dry Neurologic: awake Psychiatric: A+Ox3, euthymic affect Genitourinary: no CVA tenderness Results & Data ([facility]) Vital Signs (Past 12 Hours) Vital Signs Temp Pulse Resp BP Pulse Ox 03/03/21 07:33 36.9 C 81 16 148/85 H 95 03/03/21 02:10 134/67 03/03/21 01:29 36.7 C 84 16 198/109 H 95 03/03/21 00:43 93 H 18 141/76 H 99 03/02/21 23:08 86 18 174/97 H 99 03/02/21 21:49 96 H 18 186/106 H 96 03/02/21 20:18 83 18 199/117 H 96 PG Care Time/CCT Total # of Minutes Spent Total Time Spent with Patient: Total time spent is greater than 50% in coordination of care (as documented) at patient's floor/unit and/or counseling patient: Coding Level of Care Code 07173 Subseq Hosp Care Lvl 2 Diagnoses Obstruction of left ureteropelvic junction (UPJ) due to stone N20.1 Hydronephrosis of left kidney N13.30
[2021-03-03 11:15] LABS: Appearance Urine Clear (Clear); Bacteria Urine Automated Negative (Negative); Bilirubin Urine Negative (Negative); Blood Urine 3+ (Negative); Color Urine Yellow; Epithelial Cell Urine Auto 20-30 /lpf (0-5); Glucose Urine UA Negative (Negative); Ketones Urine 1+ (Negative); Leukocyte Esterase Urine Trace (Negative); Nitrite Urine Negative (Negative); Protein Urine 1+ (Negative); Specific Gravity Urine 1.011 (1.000-1.030); Urobilinogen Urine Negative (Negative); pH Urine 5.5 (4.5-7.5)
--- NOTE | 2021-03-03 15:04 | Anesthesiology Consultation ---
Date of Service March 03, 2021 Assessment & Plan Chart Review Chart Review: Acceptable Risk for Surgery and Patient NOT seen in Pre Admission Testing Consults Requested none ASA ASA3 Proposed Anesthesia Anesthesia Type: General History Surgery Operation Date: 03/03/21 10:40 Proposed Procedures p Cystoscopy Left Ureteral Stent Placement - Dayday Hudson MD Height/Weight Height: 6 ft Weight: 117.1 kg Allergies Allergy/AdvReac Type Severity Reaction Status Date / Time shellfish derived Allergy Intermediate GOUT Verified 03/02/21 18:59 shrimp Allergy Intermediate HIVES Verified 03/02/21 18:59 Medications Home Medications Medication Instructions Recorded Confirmed Last Taken atorvastatin 40 mg PO QAM 03/02/21 03/02/21 03/02/21 lisinopril 40 mg PO QAM 03/02/21 03/02/21 03/02/21 multivitamin [Daily Multi-Vitamin] 1 tab PO QAM 03/02/21 03/02/21 03/02/21 Active Medications Generic Name Dose Route Start Last Admin Trade Name Freq PRN Reason Stop Dose Admin Sodium Chloride 1,000 mls @ 125 mls/hr 03/02/21 22:30 03/03/21 13:30 Nss 1000ml IV 04/01/21 22:29 125 mls/hr .Q8H JANUARY Administration Ceftriaxone Sodium 2,000 mg/ 70 mls @ 100 mls/hr 03/03/21 02:00 03/03/21 03:08 Dextrose IV 03/13/21 01:59 Infused Q24H JANUARY Infusion Protocol Famotidine 20 mg/ Syringe 5 mls @ 2.5 mls/min 03/03/21 02:00 03/03/21 13:30 IV 04/02/21 01:59 2.5 mls/min Q12H JANUARY Administration Tamsulosin HCl 0.4 mg 03/03/21 09:00 03/03/21 09:10 Tamsulosin Hcl 0.4 Mg Cap PO 04/02/21 08:59 0.4 mg QAM JANUARY Administration NPO Date Last Intake of Fluids: 03/02/21 Time Last Intake of Fluids: 22:30 Date Last Intake of Solids: 03/01/21 Time Last Intake of Solids: 14:30 Past Medical History Medical History Nephrolithiasis Exercise / Class Metabolic Activity II 4-5 Yardwork/Stairs/Walk up hill Past Family History Family History Sister Breast cancer Heart disease Lupus (systemic lupus erythematosus) Hypothyroidism Lumbar canal stenosis Father Myocardial infarction Diabetes Coronary artery stenosis Mother COPD (chronic obstructive pulmonary disease) Hypothyroidism Lumbar canal stenosis Denies family history of Ovarian cancer Prostate cancer Colorectal cancer Past Surgical History Surgical History History of total knee arthroplasty Right total knee September 2017-Dr. Yepez Left total knee arthroplasty September 2015-Dr. Yepez S/P nasal septoplasty S/P TKR (total knee replacement) S/P tonsillectomy Past Anesthesia History No Hx of Anesthesia Complications and No Family Hx of Anesthesia Complications History of PONV No Hx of PONV and No Hx of Motion Sickness Social History Smoking Status: Never smoker tobacco type: cigars Hx Alcohol Use: Yes Alcohol type: beer alcohol intake frequency: a few times a week Hx Substance Use: No Physical Exam Vital Signs Last Vital Signs Temp 36.9 C 03/03/21 07:33 Pulse 81 03/03/21 07:33 Resp 16 03/03/21 07:33 BP 148/85 H 03/03/21 07:33 Pulse Ox 95 03/03/21 07:33 Testing Laboratory Results 03/03/21 05:54 03/03/21 05:54 Urine Color Yellow 03/03/21 10:55 Urine Appearance Clear (Clear) 03/03/21 10:55 Urine pH 5.5 (4.5-7.5) 03/03/21 10:55 Ur Specific [place] 1.011 (1.000-1.030) 03/03/21 10:55 Urine Protein 1+ (Negative) H 03/03/21 10:55 Urine Glucose (UA) Negative (Negative) 03/03/21 10:55 Urine Ketones 1+ (Negative) H 03/03/21 10:55 Urine Nitrite Negative (Negative) 03/03/21 10:55 Ur Leukocyte Esterase Trace (Negative) H 03/03/21 10:55 Urine WBC (Auto) 1-5 /hpf (0-5) 03/03/21 10:55 Urine RBC (Auto) 5-10 /hpf (0-4) H 03/03/21 10:55 U Hyaline Cast (Auto) 5-10 /lpf (0-5) H 03/03/21 10:55 U Epithel Cells (Auto) 20-30 /lpf (0-5) H 03/03/21 10:55 Urine Bacteria (Auto) Negative (Negative) 03/03/21 10:55 Electrocardiogram Date: 03/03/21 Findings: + NSR @ (at 89) and + RBBB Chest X-Ray Date: 03/02/21 Findings: + NAD
[2021-03-03] MEDS ORDERED: ATROPINE SULFATE 0.1 MG/ML 10ML SYR IV PRN (15:18)
[2021-03-03] MEDS ORDERED: LABETALOL HCL IV 5 MG/ML 20ML IV PRN (15:18)
[2021-03-03] MEDS ORDERED: FLUMAZENIL 0.1 MG/1 ML 10 ML VIAL IV PRN (15:18)
[2021-03-03] MEDS ORDERED: PROMETHAZINE HCL 12.5 MG in SODIUM CHLORIDE 0.9% 50 ML IV PRN (15:18)
[2021-03-03] MEDS ORDERED: fentaNYL citrate 100 MCG/2 ML VIAL IV PRN (15:18)
[2021-03-03] MEDS ORDERED: NALOXONE HCL 0.4 MG/1 ML VIAL/CARP IV PRN (15:18)
[2021-03-03] MEDS ORDERED: ePHEDrine sulfate 50 MG/ML AMP IV PRN (15:18)
--- NOTE | 2021-03-03 15:34 | Electrocardiogram Report ---
Test Reason : Blood Pressure : / mmHG Vent. Rate : 089 BPM Atrial Rate : 089 BPM P-R Int : 154 ms QRS Dur : 130 ms QT Int : 422 ms P-R-T Axes : 053 -04 -04 degrees QTc Int : 513 ms Normal sinus rhythm Right bundle branch block Abnormal ECG When compared with ECG of 24-AUG-2017 12:24, Right bundle branch block is now Present Confirmed by Emmett Villanueva ([id number]) on 03/03/2021 3:33:41 PM Referred By: Dayday Acosta Confirmed By:Emmett Villanueva
[2021-03-03] MEDS ORDERED: MIDAZOLAM HCL 1 MG/ML 2ML VIAL ONE (16:23)
[2021-03-03] MEDS ORDERED: PROPOFOL IV EMULSION 10 MG/ML 20 ML VIAL IV ONE (16:49)
[2021-03-03] MEDS ORDERED: LIDOCAINE 2% 2 ML VIAL/AMP(20MG/ML) INFIL ONE (16:49)
[2021-03-03] MEDS ORDERED: ONDANSETRON INJ 2 MG/ML 2 ML VIAL ONE (16:49)
--- NOTE | 2021-03-03 17:08 | Operative Report ---
PG Post Operative Report Pre & Post Diagnosis Operation Date: 03/03/21 10:40 Pre-Op Diagnosis: (1) Obstruction of left ureteropelvic junction (UPJ) due to stone (2) Hydronephrosis of left kidney Post-Op Diagnosis: (1) Obstruction of left ureteropelvic junction (UPJ) due to stone (2) Hydronephrosis of left kidney I identified the patient and participated in the time-out.: Yes Procedure Operation Date: 03/03/21 10:40 Actual Procedures p Cystoscopy Left Ureteral Stent Placement(Left) - Dayday Hudson MD Surgeon Hunter Hudson MD [employer] none Estimated Blood Loss 0 Findings Consistent with Post-Op Diagnosis Specimens none Description of Procedure The patient was identified in the preoperative holding area, appropriate informed consents were reviewed and completed and the patient was transferred to the operative suite. Upon arrival, appropriate antibiotics and anesthesia were administered and the patient was placed in dorsal lithotomy position and prepped and draped in sterile fashion. To begin the case I passed a 22 [place]i cystoscope with 30 degree lens. Inspection revealed a healthy-appearing urethra and a modestly enlarged prostate. His bladder was inspected and healthy. I turned my attention to the left UO and cannulated with a sensor wire and a 5 [place]i open-ended catheter. Wire advanced to the kidney without difficulty. I then placed a 6 [place]i by 26 cm double-J ureteral stent seeing a good curl in the kidney as well as the bladder. The case was concluded and he was reversed of anesthesia and taken to the recovery room in stable condition. There were no complications. I attest to the content of the Intraoperative Record and any orders documented t herein. Any exceptions are noted below.
--- NOTE | 2021-03-03 17:31 | Anesthesiology Progress Note ---
Date of Service March 03, 2021 Anesthesia Post Procedure Vital Signs Vital Signs: Temp Pulse Pulse Pulse Resp BP BP 03/03/21 17:20 85 20 150/97 H 03/03/21 17:09 36.6 C 91 H 16 133/81 03/03/21 15:04 36.9 C 84 18 166/94 H 03/03/21 07:33 36.9 C 81 16 148/85 H 03/03/21 02:10 134/67 03/03/21 01:29 36.7 C 84 16 198/109 H 03/03/21 00:43 93 H 18 141/76 H 03/02/21 23:08 86 18 174/97 H 03/02/21 21:49 96 H 18 186/106 H 03/02/21 20:18 83 18 199/117 H 03/02/21 17:34 36.2 C L 99 H 20 168/101 H Pulse Ox 03/03/21 17:20 98 03/03/21 17:09 98 03/03/21 15:04 98 03/03/21 07:33 95 03/03/21 02:10 03/03/21 01:29 95 03/03/21 00:43 99 03/02/21 23:08 99 03/02/21 21:49 96 03/02/21 20:18 96 03/02/21 17:34 97 Pain Intensity Left Flank: Pain Intensity: 0 Transfer of Care Handoff Completed per policy Notes Mental Status: alert / awake / arousable Patient Amnestic to Procedure: Yes Nausea / Vomiting: adequately controlled Pain: adequately controlled Airway Patency, RR, SpO2: stable & adequate BP & HR: stable & adequate Hydration State: stable & adequate Anesthetic Complications: no major complications apparent
--- NOTE | 2021-03-03 17:42 | Fluoroscopy Report ---
FL KUB HISTORY: 70 years-old Male LT CYSTO/LASER/STENT left-sided cystourethrogram COMPARISON: CT abdomen and pelvis 03/02/2021 TECHNIQUE: One spot fluoroscopic image of the abdominal left upper quadrant was obtained utilizing 8. 1 seconds fluoroscopy time FINDINGS: The proximal portion of a left ureteral stent appears to be in satisfactory positioning. The distal p ortion was not imaged. No definite ureteral calculus identified. IMPRESSION: Fluoroscopic assistance as above. ACT 112: Negative or not required by law. The above report was generated using voice recognition software. It may contain grammatical, syntax o r spelling errors. Electronically signed by: Riley Mares M.D. 03/03/2021 5:40 PM
[2021-03-03] MEDS ORDERED: hydrALAZINE HCL 20 MG/ML VIAL IV PRN (19:24)
[2021-03-04] MEDS: cefTRIAXone SODIUM 2,000 MG in DEXTROSE 5% 50 ML IV SCH (01:31)
[2021-03-04] MEDS: FAMOTIDINE 20 MG in SYRINGE 3 ML IV SCH (01:32)
[2021-03-04] MEDS: SODIUM CHLORIDE 0.9% 1000ML 1,000 ML IV SCH (03:13)
[2021-03-04 06:22] LABS: Basophils # (auto) 0.02 K/uL (0-0.2); Basophils % (auto) 0.3 %; Eosinophils # (auto) 0.06 K/uL (0-0.5); Hematocrit (blood only) 41.8 % (42-52); Hemoglobin 14.1 g/dL (14.0-18.0); Immature Granulocytes # (auto) 0.01 K/uL (0.00-0.02); Immature Granulocytes % (auto) 0.2 %; Lymphocytes # (auto) 1.49 K/uL (1.2-3.4); Lymphocytes % (auto) 25.5 %; Mean Corpuscular Hemoglobin 30.7 pg (25-34); Mean Corpuscular Hgb Conc 33.7 g/dL (32-36); Mean Corpuscular Volume 90.9 fL (80-100); Mean Platelet Volume 9.3 fL (7.4-10.4); Monocytes # (auto) 0.59 K/uL (0.11-0.59); Monocytes % (auto) 10.1 %; Neutrophils # (auto) 3.68 K/uL (1.4-6.5); Neutrophils % (auto) 62.9 %; Platelet Count 166 K/uL (130-400); RDW Coefficient of Variation 13.3 % (11.5-14.5); RDW Standard Deviation 44.2 fL (36.4-46.3); White Blood Count 5.85 K/uL (4.8-10.8)
[2021-03-04 06:53] LABS: Albumin Globulin Ratio 0.7 (0.9-2); Albumin Level 2.9 gm/dl (3.4-5.0); Bilirubin,Total 0.5 mg/dl (0.2-1); Calcium 8.5 mg/dl (8.5-10.1); Creatinine Clr Calc Pharmacy 107.4 ml/min; Est GFR (African American) 102.8 ml/min; Est GFR (Non-African American) 88.7 ml/min; Total Protein 6.9 gm/dl (6.4-8.2)
--- NOTE | 2021-03-04 07:46 | Hospitalist Progress Note ---
Date of Service March 03, 2021 Assessment & Plan (1) Obstruction of left ureteropelvic junction (UPJ) due to stone: 6.4 mm left UPJ ureteral stone/moderate left hydronephrosis- Follow urine culture sensitivity Empiric ceftriaxone 2 g IV daily Continue NSS at 125 mL's per hour Zofran 4 mg IV every 6 hours as needed Famotidine 20 mg IV every 12 hours [place] 5/325, 1 p.o. every 6 hours as needed moderate pain [place] 5/325, 2 p.o. every 6 hours as needed severe pain Dilaudid 0.25 mg IV every 3 hours as needed moderate pain Dilaudid 0.5 mg IV every 3 hours as needed severe pain Consult urology - planning on stent placement later today with further stone management on Tuesday. (2) Hydronephrosis of left kidney: See above (3) Acute kidney injury: Now resolved with IV fluids Creatinine 2.00 upon admission, with normal 1.00 Continue NSS at 125 mils per hour Repeat laboratories in a.m. (4) Hypertension: Hold lisinopril 40 mg daily due to SELAM (5) Hyperlipidemia: Continue atorvastatin 40 mg daily (6) Impaired fasting glucose: Glucose 88 upon admission. On no outpatient medications Admission and Anticipated Discharge Date Admission Date: March 02, 2021 Subjective Patient reports much less pain since arrival in the ER. Severity now mild on left flank. Planning on stent placement later today and discharge home tomorrow morning as long as pain is well controlled. No fever or chills. Review of Systems Review of Systems: All systems reviewed & are unremarkable except as noted in HPI & below Physical Exam Constitutional: WD/WN, vitals as above Eyes: + anicteric sclerae; normal pupil size Respiratory: normal respiratory effort, lungs clear to auscultation Cardiovascular: RRR, no murmur, no edema Gastrointestinal (Abdomen): normal bowel sounds, soft, nontender, no hepatosplenomegaly Musculoskeletal: no cyanosis or clubbing, extremities motor strength 5/5 Psychiatric: A+Ox3, euthymic affect Genitourinary: + CVA tenderness (left) Results & Data Results & Data ([facility]) Vital Signs (Past 12 Hours) Vital Signs Temp Pulse Resp BP Pulse Ox 03/03/21 07:33 36.9 C 81 16 148/85 H 95 06/22/21 02:10 134/67 03/03/21 01:29 36.7 C 84 16 198/109 H 95 PG Care Time/CCT Total # of Minutes Spent Total Time Spent with Patient: Total time spent is greater than 50% in coordination of care (as documented) at patient's floor/unit and/or counseling patient: Coding Level of Care Code 31060 Subseq Hosp Care Lvl 2 Diagnoses Obstruction of left ureteropelvic junction (UPJ) due to stone N20.1 Hydronephrosis of left kidney N13.30 Acute kidney injury N17.9 Hypertension I10 Hypertension type: essential hypertension Hyperlipidemia E78.5 Impaired fasting glucose R73.01 (1) Hypertension Hypertension type: essential hypertension Qualified Code(s): I10 - Essential (primary) hypertension
--- NOTE | 2021-03-04 08:05 | Urology Progress Note ---
Date of Service March 04, 2021 Assessment & Plan (1) Obstruction of left ureteropelvic junction (UPJ) due to stone: 70 yo M POD#1 s/p cystoscopy and left stent placement with Dr. Hudson. - Doing well, progressing as expected - Afebrile, lab work reviewed - creatinine and WBC within normal limits - Tolerating left ureteral stent with minimal bother - Okay to d/c home today from perspective - Recommend d/c with Tamsulosin, prn Pyridium, prn Oxybutynin, and prn pain management for stent discomfort - Expected clinical course reviewed - Follow-up with our service after discharge to arrange definitive stone management - Patient to have COVID test after discharge - he is aware - He is agreeable with the plan, all questions answered Thank you for allowing us to participate in the acute care of Mr. Luong. Please reconsult us with additional questions, concerns or changes in patient status. Admission and Anticipated Discharge Date Admission Date: March 02, 2021 Subjective 70 yo M POD #1 s/p cystoscopy and left stent placement with Dr. Hudson. Patient awake and resting in bed No acute issues overnight Reports some left flank discomfort last night - utilized hydrocodone- acetaminophen on 03/03 @2240 with good relief No flank pain at present Voiding spontaneously. Some discomfort with voids. Notes some urinary urgency, lack of control. No f/c/n/v No additional concerns today. Chart review: Afebrile, creatinine 0.87, WBC 5.85, Hgb 14.1. Review of Systems Constitutional: as per Subjective / HPI Gastrointestinal: as per Subjective / HPI Genitourinary: + as per Subjective / HPI Physical Exam Constitutional: well developed and well nourished; no acute distress and not ill appearing Respiratory: normal respiratory effort and able to speak in complete sentences; no respiratory distress and no labored breathing Gastrointestinal (Abdomen): Inspection/Auscultation: abdomen normal to inspection; abdomen not distended Musculoskeletal: Head/Neck/Chest: normocephalic and head atraumatic Skin: no rashes, warm and dry Neurologic: moves all extremities and awake Psychiatric: A+Ox3, euthymic affect Results & Data ([facility]) Vital Signs (Past 12 Hours) Vital Signs Temp Pulse Resp BP Pulse Ox 03/04/21 06:34 36.7 C 75 16 152/83 H 93 03/04/21 03:06 36.8 C 78 16 164/89 H 96 03/03/21 23:51 164/88 H 03/03/21 22:28 37.0 C 88 16 180/96 H 96 03/03/21 21:18 83 153/83 H 03/03/21 20:40 37.0 C 88 16 179/93 H 96
[2021-03-04] MEDS: TAMSULOSIN HCL 0.4 MG CAP PO SCH (09:05)
--- NOTE | 2021-03-04 09:18 | Discharge Summary ---
Date of Service March 04, 2021 Admission HPI Per Admitting Provider The patient is a 70-year-old male with a past medical history including moderate LEONARD, hyperlipidemia, hypertension, impaired fasting glucose, morbid obesity, paresthesias, plantar flexion deformity of left foot, absent dorsiflexion of left ankle, steppage gait, DJD of knee, and history of kidney stone greater than 20 years ago. He presents with acute onset of left-sided flank and abdominal pain. Work-up in the emergency department included CT of abdomen and pelvis which showed a 6.4 mm left UPJ stone causing moderate left hydronephrosis. Also noted was hepatic steatosis. Significantly abnormal laboratories: BUN 23, creatinine 2.00, AST 44, globulin 4.4. Patient was COVID-19 negative Admission Exam Per Admitting Provider The patient is awake, alert and oriented 3, well developed and well nourished, normocephalic and atraumatic, lying in bed and in no acute distress. HEENT--PERRL, EOMI, mucous membranes and oropharynx normal. Neck--supple. No JVD. No bruits. Thyroid normal, trachea midline, no adenopathy. Heart--normal S1 and S2. No murmurs, rubs or gallops. Lungs--clear bilaterally, no respiratory distress, no accessory muscle use. Abdomen--normal bowel sounds and soft. Nontender. Nondistended. Obese Extremities--no cyanosis or clubbing. No edema. Dermatologic--normal skin turgor, normal color, no abnormal lymph nodes, no rash. Neurologic--cranial nerves II through XII grossly intact. Rheumatologic--normal range of motion. Psychiatric--normal affect. Principal Diagnosis Left obstructing kidney stone Acute kidney injury - resolved Discharge Exam Constitutional WD/WN, vitals as above Eyes + anicteric sclerae; normal pupil size Respiratory normal respiratory effort, lungs clear to auscultation Cardiovascular RRR, no murmur, no edema Gastrointestinal (Abdomen) normal bowel sounds, soft, nontender, no hepatosplenomegaly Musculoskeletal no cyanosis or clubbing, extremities motor strength 5/5 Psychiatric A+Ox3, euthymic affect Genitourinary + CVA tenderness (left) Discharge Data Allergies Allergy/AdvReac Type Severity Reaction Status Date / Time shellfish derived Allergy Intermediate GOUT Verified 03/06/21 08:10 shrimp Allergy Intermediate HIVES Verified 03/06/21 08:10 Consultations 03/02/21 22:30 Consult Urology Stat ED Decision to Admit Stat Procedures Performed Operation Date: 03/03/21 10:40 Actual Procedures p Cystoscopy Left Ureteral Stent Placement(Left) - Dayday Hudson MD Ordered Studies 03/02/21 19:44 CT abd pelvis wo con Stat IMPRESSION: 1. 5 mm obstructive calculus within proximal aspect of the left ureter associated with moderate hydronephrosis and hydroureter on the left and associated perinephric inflammatory changes. 2. Bilateral nephrolithiasis. 3. Multiple cystic lesions within right kidney, largest shows calcified septations no definite evidence of soft tissue component however evaluation is limited due to lack of IV contrast. Further evaluation by urology and possible dedicated CT of the abdomen on nonemergency basis is suggested. 4. Small umbilical hernia containing nondilated loop of small bowel. No arnie dence of obstruction or strangulation. 5. Diverticulosis of descending and sigmoid colon without evidence of diverticulitis. 6. Hepatic steatosis. 7. Degenerative changes of the spine. 03/03/21 14:30 FL KUB Routine Hospital Course (1) Obstruction of left ureteropelvic junction (UPJ) due to stone: Parth Luong is a 70 year old male observed at [facility] from March 02-2020 due to left flank pain. He was diagnosed with a 5mm obstructing kidney stone. This was treated with ureteral stent insertion on February by Dr Hudson. He will follow up with urology for definitive stone management to be done as an outpatient. No evidence of infection on labs or urine analysis however urine culture is still pending on discharge. Tamsulosin prescribed for ureteral sphincter relaxation. Oxybutynin for spasm pain as needed. Pyridium for any burning pain as needed. Oxycodone for any more severe pain. He was also noted to have multiple cystic lesions on the right kidney and will follow up with urology for this in addition to above. (2) Hydronephrosis of left kidney: (3) Acute kidney injury: (4) Hypertension: (5) Hyperlipidemia: (6) Impaired fasting glucose: Total Time Total Time Spent Total Time Spent (In Minutes): 35 Total Time Includes: Examination of the Patient, Discharge Planning, Medication Reconciliation and Communication With Other Providers Discharge Plan Discharge Items Patient Disposition: Home - Self-Care Reason For Visit: L UPJ STONE, L MOD HYDRO Discharge Diagnosis: Left obstructing kidney stone Acute kidney injury - resolved Activity: Resume your previous activity Non-emergency contact: Urologist Call non-emergency contact if: you have any medication questions and your symptoms worsen Follow-up/Referrals: Dayday Acosta MD [Primary Care Provider] - (no routine follow up required) Dayday Hudson MD [Physician] - (Dr Lim office will phone you with a follow up appt.) Diet: Regular Addtl Attending Provider Instructions: You were observed at [facility] from March 02-2020 due to left flank pain. You were diagnosed with a 5mm obstructing kidney stone. This was treated with ureteral stent insertion on February by Dr Hudson. Definitive stone management to be done as an outpatient. No evidence of infection on blood tests or urine analysis however urine culture is outstanding on discharge. Use tamsulosin regularly to help with passage of the stone. Use oxybutynin for spasm pain as needed. Use Pyridium for any burning pain as needed. Use oxycodone for any more severe pain. You were also noted to have multiple cystic lesions on the right kidney. Please follow up with urology for this in addition to above. Kind regards, Dr Garth Garcia Pending Studies at Discharge: Yes Stand-Alone Forms: My [facility], Opioid Pain Management Medications and DC Order Prescriptions: New phenazopyridine [Pyridium] 200 mg tablet 200 mg PO Q8H PRN (Reason: burning stent pain) Qty: 10 RF: 0 oxybutynin chloride 5 mg tablet 5 mg PO Q12H PRN (Reason: stent pain) Qty: 10 RF: 0 oxycodone 5 mg tablet 5 mg PO Q6H PRN (Reason: Severe pain) Qty: 7 RF: 0 Continued multivitamin [Daily Multi-Vitamin] tablet 1 tab PO QAM RF: 0 atorvastatin 40 mg tablet 40 mg PO QAM RF: 0 lisinopril 40 mg tablet 40 mg PO QAM RF: 0 No Action tamsulosin 0.4 mg capsule 0.4 mg PO QAM RF: 0 Discharge Orders: Discharge Order (Routine); Ordered 03/04/21 Ordered By: Garth Ovalle/Other Patient Handouts: Treating Kidney Stones ... Admission Data Admit Date/Time: 03/02/21 23:34 Attending Provider: Garth Garcia Admit Provider: Tomy Zhao Primary Care Provider: Dayday Acosta Other Providers: Antonio Martinez ; Dayday Hudson Other Interventions: Discharge Summary Assessment (RN) Last Done: 03/04/21 10:29 Coding Level of Care Code D/C Day Management >30 mins Diagnoses Obstruction of left ureteropelvic junction (UPJ) due to stone N20.1 Hydronephrosis of left kidney N13.30 Acute kidney injury N17.9 Hypertension I10 Hypertension type: essential hypertension Hyperlipidemia E78.5 Impaired fasting glucose R73.01
== END 2021-03-04 10:45 | disposition home or self-care (01) | DRG 660 ==
LOC: ED 17:29 → 3N 23:34 → SUATTDRO 23:34 → 3N 03-03 01:08